=== PATIENT | male | born 1940 | race Caucasian/White ===

== ENCOUNTER 2017-04-09 10:38 | Emergency (ER) | payer OTHER ==
[2017-04-09 10:44] VITALS: RESP 18; TEMP 97.5; O2SAT 97
[2017-04-09 11:11] LABS: COLOR YELLOW; LEUKOCYTE ESTERASE,URINE NEGATIVE (NEGATIVE); NITRITE,URINE NEGATIVE (NEGATIVE)
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
[2017-04-09 12:03] LABS: BACTERIA TRACE /hpf (NONE SEEN); MUCUS TRACE /lpf (NONE-1+); RBC,URINE 50-182 /hpf (0-3)
[2017-04-09 12:28] VITALS: BP 160/99; PULSE 50
== END 2017-04-09 12:27 | disposition home or self-care (01) ==
DX: R31.9 Hematuria, unspecified (principal); E11.9 Type 2 diabetes mellitus without complications; Z79.82 Long term (current) use of aspirin

== ENCOUNTER → 2017-04-17 | Outpatient (CLI) | payer OTHER ==
[~2017-04-17] MED LIST: IOPAMIDOL (ISOVUE-300) 100 ML BTL ONE
[2017-04-17 16:49] LABS: CREATININE 0.7 mg/dL (0.7-1.3); GLOMERULAR FILTRATION RATE > 60
== END ==
LOC: FIMAGING 15:44
PROVIDERS: ATTEND Specialist
DX: R31.0 Gross hematuria (principal); R35.1 Nocturia; K59.00 Constipation, unspecified
CPT/HCPCS: 74178; Q9967

== ENCOUNTER 2017-08-22 08:50 | Emergency (ER) | payer OTHER ==
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
[2017-08-22 12:50] VITALS: BP 166/82; PULSE 56; RESP 12; TEMP 97.2; O2SAT 96
== END 2017-08-22 12:51 | disposition home or self-care (01) ==
DX: S22.32XA Fracture of one rib, left side, initial encounter for closed fracture (principal); S09.90XA Unspecified injury of head, initial encounter; S79.912A Unspecified injury of left hip, initial encounter; V18.2XXA Unspecified pedal cyclist injured in noncollision transport accident in nontraffic accident, initial encounter; E11.9 Type 2 diabetes mellitus without complications; Z79.82 Long term (current) use of aspirin; Z79.4 Long term (current) use of insulin

== ENCOUNTER 2018-05-12 09:43 | Inpatient (IN) | payer OTHER ==
--- NOTE | 2018-05-12 09:59 | CPEKG ---
Heart Rate: 57 RR Interval: 1053 P-R Interval: 192 QRSD Interval: 104 QT Interval: 436 QTC Interval: 425 P Bath: 74 QRS Bath: -64 T Wave Bath: 78 EKG Severity - ABNORMAL ECG - EKG Impression: SINUS RHYTHM EKG Impression: LEFT ANTERIOR FASCICULAR BLOCK Electronically Signed By: Marylu Davis 15-May-2018 15:33:04
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
[2018-05-12 10:14] LABS: PLATELET COUNT 253 10^3/uL (150-400)
[2018-05-12 10:30] LABS: PROTIME(PATIENT) 13.4 SEC (12.0-15.0)
--- NOTE | 2018-05-12 10:47 | CPEKG ---
Heart Rate: 56 RR Interval: 1071 P-R Interval: 188 QRSD Interval: 102 QT Interval: 444 QTC Interval: 429 P Center Line: 63 QRS Center Line: -60 T Wave Center Line: 76 EKG Severity - ABNORMAL ECG - EKG Impression: SINUS RHYTHM EKG Impression: LEFT ANTERIOR FASCICULAR BLOCK Electronically Signed By: Fidel Retana 15-May-2018 07:00:15
--- NOTE | 2018-05-12 15:35 | PDGENHP ---
History and Physical History and Physical: CC: Chest pain HISTORY: The patient comes in for assessment due to chest pain while riding his bike today. He is an avid biker in usually goes for very long bike rides as much as 40-60 miles. Today he was 3 miles into a bike ride when he started to experience a tightness in his chest that was fairly uncomfortable. This was associated with some mild dyspnea and feeling as weakness in his arms. He rode back home and brought himself to the ER. His symptoms are resolved as he arrives at the ER. Notably the patient states that he has been having similar episodes during bike rides intermittently over the past 2 or more weeks. He does have a history of a stent to his LAD some years back probably about 10 years ago. He had this done with Dr. Medhat Mcgovern, but he has not seen a solid plasterer for 5 years. Because of these recent episodes, the patient did see Dr. Cruz in pulmonology clinic yesterday. Dr. Cruz considered the possibility that there was some time but of exercise induced asthma or other pulmonary issue, and prescribe some bronchodilator inhaler which the patient has not yet tried. Dr. Cruz did recommend however that the patient be seen by Cardiology to consider stress testing or other cardiac evaluation ROS: A comprehensive 10 system review revealed no other significant findings PAST MEDICAL HISTORY: Coronary artery disease with stent to LAD Hypertension TIA Hemorrhagic stroke Diabetes mellitus on insulin FAMILY MEDICAL HISTORY: No concerning or relevant significant issues SOCIAL HISTORY: No history of tobacco or alcohol use or street drug use Ride his bike frequently the 40-60 miles though his rides have become shorter in the last couple of weeks due to recurrent episodes of chest discomfort and dyspnea with riding MEDICATIONS: The patients list has been reconciled by our clinical pharmacist in the EMR. I have reviewed the list and ordered appropriate medicines. PHYSICAL EXAMINATION: Vital Signs: Initially very mild systolic hypertension which has resolved spontaneously, otherwise normal Refrigeration Tech: Sinus Examination: General: alert, oriented, good mentation, relaxed Skin: warm, dry, good color, no rash HEENT: normal Neck: no mass or jvd Resps: relaxed Lungs: clear breath sounds Heart: regular, no murmur Abdomen: soft, nondistended, nontender, +BS, no mass Upper Extremities: normal Lower Extremities: no edema, warm No Bleeding or bruising Neurologic: normal speech/language, normal sounding device operator, no focal weakness IV site: looks normal LABORATORY DATA: 1st troponin normal Otherwise unremarkable CBC and metabolic panel other than a glucose 169 RADIOLOGY STUDIES: Chest x-ray done in the ER unremarkable on my interpretation of the images 12 LEAD EKG: My interpretation of the ER EKG tracing is sinus rhythm with mild bradycardia no other abnormalities ASSESSMENT: # exertional chest pain and dyspnea in the gentleman with LAD stent placed 10 years ago # stable sinus rhythm and vital signs at this time with no evidence of heart failure # no ischemic or injury changes on 1st troponin and EKG PLANS: * Observe the patient on cardiac monitoring overnight * Repeat troponins and EKG * Will review with Cardiology, could consider stress test but given his symptoms and known coronary disease with stent 10 years ago might be reasonable to proceed with angiography * Certainly if he has a positive troponins or develops any heart failure or arrhythmia or other instability would recommend angiography I have reviewed the patient's case in detail with Dr. Rj Del Toro I have reviewed the patient's past medical records as part of this assessment, including previous hospital admission records
[2018-05-12] MEDS ORDERED: ALBUTEROL 60 PUFFS/8 GM MDI IH PRN (20:29)
[2018-05-12] MEDS ORDERED: Insulin Pump, Patient Own MISC SCH (20:30)
[2018-05-12] MEDS ORDERED: ACETAMINOPHEN 325 MG TAB PO PRN (20:35)
[2018-05-12] MEDS ORDERED: ONDANSETRON DISINTEGRATING 4 MG TAB PO PRN (20:35)
[2018-05-12] MEDS ORDERED: ZOLPIDEM TARTRATE 5 MG TAB PO PRN (20:35)
[2018-05-12] MEDS ORDERED: ONDANSETRON 4 MG/2 ML VIAL IVP PRN (20:35)
[2018-05-13] MEDS: CHOLECALCIFEROL VIT D3 1,000 UNITS TAB PO SCH (08:24)
[2018-05-13] MEDS: LISINOPRIL 40 MG TAB PO SCH (08:24)
--- NOTE | 2018-05-13 08:30 | HOSPPROG ---
Hospitalist Progress Note Assessment/Plan: DIAGNOSES: -NSTEMI/unstable angina -known coronary disease with prior LAD stent -type 1 diabetes on insulin pump * Some hyperglycemia this morning due to the patient's having turned his basal rate down PLANS: -I reviewed with Dr. Mario Alberto Cox -At this point the patient has essentially failed stress test with his repeated angina on bike and now has some indeterminate troponins. It does not seem like further diagnostic stress testing is going to be beneficial as it will very likely be abnormal but if were normal would be quite concerned about a false normal. He has been NPO overnight. Will plan on angiography later this morning. I reviewed this in detail with the patient -will recheck his sugars later this morning with the higher basal rate, no boluses as he is not eating at this time SUBJECTIVE: Patient has done well overnight without any recurrent angina palpitations or dyspnea He did turn his basal rate on his insulin pump down to 50% of usual during the night and his sugar has crept up to just over 200. He is just recently turned a basal rate back up and will follow this closely OBJECTIVE Vitals reviewed: Sinus bradycardia at rest, otherwise normal vitals no fever Biology Internship, my review: Exam: alert oriented skin warm dry color ok resps not labored lungs clear BSs heart regular abd soft nondistended nontender, bowel sounds present limbs warm, no edema iv site ok Laboratory data: Troponins elevated to 0.09 in indeterminate range on 2nd and 3rd measures Objective: Vital Signs Temp Pulse Resp BP Pulse Ox 36.4 C 43 L 18 136/66 H 100 05/13/18 07:51 05/13/18 07:51 05/13/18 07:51 05/13/18 07:51 05/13/18 07:51 05/12/18 05/13/18 05/14/18 06:59 06:59 06:59 Intake Total 980 Balance 980 PT 13.4 SEC (12.0-15.0) 05/12/18 10:07 INR 1.00 (0.83-1.16) 05/12/18 10:07 ICD10 Worksheet Patient Problems: Problems Problem Status Onset Chest pain Acute Stable angina Acute Benign essential hypertension Active CAD - Coronary arteriosclerosis Active Diabetes mellitus type 1 Active History of - cerebrovascular accident Active History of - transient ischemic attack Active Urinary tract infectious disease Active
[2018-05-13] MEDS ORDERED: ASPIRIN 81 MG CHEWABLE TAB PO SCH ×2 (09:00→22:30)
[2018-05-13] MEDS ORDERED: D50W 25 GM/50 ML SYR IVP PRN (10:43)
[2018-05-13] MEDS ORDERED: INSULIN PUMP, PATIENT OWN 1 EA MISC SCH (10:45)
[2018-05-13] MEDS ORDERED: NS 1,000 ML IV ONE (11:03)
[2018-05-13] MEDS ORDERED: ASPIRIN EC 325 MG TAB PO ONE (11:03)
[2018-05-13] MEDS ORDERED: diphenhydrAMINE 25 MG CAP PO ONE (11:03)
[2018-05-13] MEDS ORDERED: FAMOTIDINE 20 MG TAB PO ONE (11:03)
[2018-05-13] MEDS ORDERED: DIAZEPAM 5 MG TAB PO ONE (11:03)
[2018-05-13] MEDS ORDERED: fentaNYL 100 MCG/2 ML INJ ONE (11:19)
[2018-05-13] MEDS ORDERED: MIDAZOLAM 2 MG/2 ML VIAL ONE (11:19)
[2018-05-13] MEDS ORDERED: LIDOCAINE 1% 300 MG/30 ML SDV ONE (11:19)
[2018-05-13] MEDS ORDERED: IOPAMIDOL (ISOVUE 370) 100 ML BTL IV ONE (11:20)
--- NOTE | 2018-05-13 11:35 | PDHPUP ---
History & Physical Update H&P update statement: This history and physical update is based on an assessment of the patient which was completed after admission or registration (within 24 hours), but prior to the surgery/procedure. H&P update: H&P reviewed & patient examined, no change in patient's condition since H&P completed
--- NOTE | 2018-05-13 11:35 | PDPROPOC ---
Sedation Plan of Care Sedation Plan of Care: vital signs stable, mental status noted, patient educated of risks, benefits, alternatives, patient can tolerate sedation ASA Classification: ASA 2 Planned drugs: fentanyl, midazolam Mallampati Score: Class 2 Mallampati Reference Image: Patient passed 3-3-2 rule?: Yes
--- NOTE | 2018-05-13 12:49 | CPIP ---
[f rep st] INVASIVE CARDIAC PROCEDURE DATE OF PROCEDURE: 05/13/2018 PROCEDURE: 1. Coronary angiography. 2. Left ventriculography. INDICATION: Acute coronary syndrome with elevated troponin. ACCESS: Patient was prepped and draped in sterile fashion. 1% lidocaine was used to anesthetize the right inguinal region. A 6-Lithuanian introducer sheath was placed selectively into the right common fe moral artery via modified Seldinger technique. CORONARY ANGIOGRAPHY: A 6-Lithuanian JL4 was advanced to the left main coronary artery and images obtain ed. The left main coronary artery trifurcated into an LAD, ramus, and circumflex coronary arteries. The left main coronary artery appeared free of any significant disease. The left anterior descendin g coronary artery was previously stented in the proximal mid segments. The previously placed stent i s widely patent with mild in-stent restenosis. Just distal to the previously placed stent, there is a focal 85% stenosis present, indicating edge stenosis as opposed to stent failure. The left anterio r descending coronary artery gave rise to 4 diagonal branches. The largest of the diagonal branches is the 2nd diagonal branch. The 2nd diagonal branch is 100% occluded and the ostial segment is being filled by collaterals from the left anterior descending coronary artery. The ramus coronary artery is a large vessel. The ramus coronary artery has a 60% to 70% stenosis in the proximal segment. The circumflex coronary artery is a moderate-sized vessel. The circumflex coronary artery is 100% occlu ded in the mid vessel. The distal vessel is being fed by collaterals from the left anterior descendi ng coronary artery. A 6-Lithuanian JR4 was advanced to the right coronary artery and images obtained. T he right coronary artery is dominant. The right coronary artery has mild diffuse disease throughout. The greatest stenosis is approximately 30%. LEFT VENTRICULOGRAPHY: A 6-Lithuanian pigtail catheter was advanced in the left ventricle and images obt ained. Left ventricle is normal in size and has normal systolic function. Estimated ejection fracti on is 60%. There were no segmental wall motion abnormalities appreciated. COMPLICATIONS: None. CONCLUSIONS: 1. 2-vessel coronary artery disease involving the left anterior descending coronary artery and circu mflex coronary artery. 2. Chronic total occlusion of the second diagonal artery and the circumflex coronary artery. 3. Normal left ventricular size and systolic function. 4. Plan is for surgical evaluation in this diabetic patient. /[id number]/MODL
--- NOTE | 2018-05-13 14:08 | ASMTCASEMG ---
Living Arrangements What is your living Answers: With Spouse arrangement? Who do you live with? Type Of Residence What kind of residence do Answers: House you live in? Discharge Plan Comments Coordination Status Comments Notes: Pts case discussed in tx rounds. Pt is a 77 y/o man admitted for stable angina and chest pain. 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 Pt will most likely d/c without any needs. No therapies ordered at this time. CM available for changes. Plan: Independent Date Signed: 05/13/2018 02:07 PM Electronically Signed By:LEAH Pratt
[2018-05-13] MEDS ORDERED: NITROGLYCERIN 0.4 MG BTL SL PRN (15:02)
[2018-05-13] MEDS ORDERED: ATROPINE SULFATE 1 MG/10 ML SYR IVP PRN (15:02)
--- NOTE | 2018-05-13 15:21 | GCON ---
[f rep st] CONSULTATION DATE OF CONSULTATION: 05/13/2018 CHIEF COMPLAINT: We have been asked by Dr. Hanks to evaluate the patient with an acute coronary syn drome. HISTORY OF PRESENT ILLNESS: The patient is a 77-year-old gentleman with known coronary artery diseas e, who presents with a chief complaint of chest pain. The patient was in his usual state of health u ntil approximately 2 weeks prior to admission, when he began to experience intermittent episodes of c hest pain. Chest pain is described as a tightness extending across his chest and into his arms bilat erally. The chest discomfort is not associated with nausea, vomiting, or diaphoresis. The chest disc omfort is precipitated with exertion and relieved with rest. The chest discomfort is somewhat simila r to his previous anginal-type symptoms. However, patient states he never had radiation into his arm s previously. On the day of admission, patient was riding his bicycle when he began to experience th e chest discomfort. Upon returning home, he was brought to the emergency department for further eval uation. In the emergency department, he became pain-free. His EKG demonstrated no acute ST or T-wav e changes. However, his subsequent troponins were mildly elevated at 0.090, and 0.074. We have been asked to help in the further management of this patient. The patient has a previous history of dorota nary artery disease and is status post stenting of his left anterior descending coronary artery in th e distant past, followed by brachytherapy of his left anterior descending coronary artery secondary t o in-stent restenosis. His last cardiovascular evaluation was an angiogram in 2005, demonstrating a patent LAD stent. The patient has been managing his diabetes with an insulin pump. He has been on l isinopril and amlodipine for hypertension. He is also taking a daily aspirin. The patient has not b een able to tolerate beta-hannah therapy or statin therapy secondary to adverse drug reaction. PAST MEDICAL HISTORY: 1. Coronary artery disease. 2. Hypertension. 3. Hyperlipidemia. 4. Diabetes mellitus. 5. TIA. MEDICATIONS: Please see medicine reconciliation form. ALLERGIES: No known drug allergies. The patient does report an adverse drug reaction to beta blocke rs and statins. SOCIAL HISTORY: Patient is . He lives with his . He does not smoke. He remains active riding his bicycle approximately 50 miles a week. FAMILY HISTORY: Noncontributory. REVIEW OF SYSTEMS: Ten-point review of systems is negative, except as noted in HPI. PHYSICAL EXAMINATION: GENERAL: The patient is resting comfortably in bed. He does not appear to be in acute distress. VITAL SIGNS: Temperature is afebrile. Pulse is 43, blood pressure 136/66, resp iratory rate 18, SaO2 100% on room air. HEENT: Normocephalic, atraumatic. Extraocular muscles inta ct. NECK: No JVD. No bruits. LUNGS: Clear to auscultation bilaterally. CARDIOVASCULAR: Regular rate and rhythm. S1, S2. Grade 2/6 holosystolic murmur is noted at the left sternal border. ABDOM EN: Soft, nontender. Normoactive bowel sounds. No hepatosplenomegaly noted. Could not palpate aor ta. EXTREMITIES: No clubbing, cyanosis, or edema. SKIN: No evidence of rashes. NEURO: Patient i s awake, alert, and oriented. LABORATORY DATA: White blood cell count 5.21, hemoglobin 16.0, hematocrit 45.9, platelet count 253. Sodium 141, potassium 4.6, chloride 108, CO2 26, BUN 20, creatinine 0.7, troponin 0.018, followed by 0.090, followed by 0.074. LDL cholesterol is 95 on diet therapy. INR is 1.0. EKG demonstrates sin us rhythm, left anterior fascicular block, normal intervals. No acute ST or T-wave changes. ASSESSMENT AND PLAN: The patient is a 77-year-old gentleman with: 1. Acute coronary syndrome. The patient has known coronary artery disease. He presents with cresce ndo angina consistent with an acute coronary syndrome. His EKG demonstrates no acute ST or T-wave ch anges. His troponins are mildly elevated. Reviewed options for risk stratification with the patient and his family, including stress testing and cardiac catheterization. The patient and family wish t o pursue cardiac catheterization. We will arrange to have this performed. 2. Hypertension. Patient has a long history of hypertension. We will plan on continuing amlodipine and lisinopril for his high blood pressure. 3. Hyperlipidemia. Patient has a history of hyperlipidemia. He has been unable to tolerate statin therapy. His LDL cholesterol is mildly elevated. Would consider Zetia therapy. 4. Diabetes. Patient has a history of diabetes. His glucose has been well controlled with an insul in pump. Will defer management to the hospitalist service. /[id number]/MODL
--- NOTE | 2018-05-13 16:53 | PDMN ---
Medical Necessity Medical necessity: Change to IP, as of 05/13/18, per MD; los >2 mn for ongoing management of moderately severe L-sided coronary disease w/significant unstable symptoms; admit for Surgical consult & possible bypass surgery, recommended to be done during this hospitalization; hx diabetes, HTN, TIA; per progress note & order 05/13/18
[2018-05-13] MEDS: LABETALOL HCL 200 MG TAB PO SCH (17:16)
[2018-05-13] MEDS ORDERED: D50W 25 GM/50 ML VIAL IVP PRN (23:30)
--- NOTE | 2018-05-14 08:09 | GCON ---
[f rep st] CONSULTATION DATE OF CONSULTATION: 05/14/2018 Patient seen at the request of Dr. Cox with the patient's permission. IMPRESSION: 1. Non-Q-wave myocardial infarction with severe 3-vessel disease and normal LV function, status post multiple previous stenting and coronary interventions. 2. Hypertension. 3. Hyperlipidemia. 4. Diabetes mellitus on insulin pump. 5. History hemorrhagic stroke with right hemiparesis with resolution, remote. MEDICATIONS: Please see medication reconciliation form. ALLERGIES: Denied. SOCIAL HISTORY: He is , accompanied by his 2 daughters, and his . He remains active cycl ing, approximately 50 miles a week. FAMILY HISTORY: Noncontributory. REVIEW OF SYSTEMS: He is entirely asymptomatic at present time, ambulating and ready for discharge. LABORATORY DATA: Preoperative lab was unremarkable with a troponin of 0.018 and 0.09. Creatinine wa s 0.7. REVIEW OF SYSTEMS: All 10 points were reviewed. PHYSICAL EXAMINATION: GENERAL: This is a slender, elderly gentleman, who appears younger than state d age, quite alert, oriented, and very functional. VITALS: Blood pressure is 130/72, pulse 53, resp irations 16, 96% on room air. Temp 36.4. HEENT: Normocephalic, PERRLA, EOMI. NECK: Without bruit , adenopathy or thyromegaly. HEART: Rate regular without murmur. LUNGS: Clear. ABDOMEN: Scaphoi d. Bowel sounds are active. Femoral and pedal pulses are 2+. No peripheral edema. RECTAL AND LILIA CLAUDIA: Exams were deferred. PLAN: To discharge this gentleman with instructions to return if he has any chest discomfort. He wi ll be scheduled for surgery Thursday morning as an outpatient. Risks and complications, including blee ding, stroke, heart attack, and reviewed at length with the patient and his family. Quoted him mortality as 1-2%, given his age and previous stroke history and peripheral vascular disease. Risk of transfusion is 5% of need for transfusion. Complications of transfusion were reviewed. /[id number]/MODL
[2018-05-14] MEDS ORDERED: EZETIMIBE 10 MG TAB PO SCH (09:00)
[2018-05-14] MEDS: CHOLECALCIFEROL VIT D3 1,000 UNITS TAB PO SCH (10:02)
[2018-05-14] MEDS: LISINOPRIL 40 MG TAB PO SCH (10:02)
--- NOTE | 2018-05-14 10:45 | SOAPPROG ---
SO Progress Note Assessment/Plan: 1. ACS - Pt presented with crescendo angina. Angiogram demonstrated a [employer] of his diagonal and LCX coronary arteries. He had high grade disease distal to his previous LAD stent. He was evaluated by CT surgery and is anticipating CABG on Thursday. He denies symptoms of angina with lower levels of activity. Will continue secondary prevention with asa, labetalol, lisinopril, zetia, and NTG. Pt is unable to tolerate statin therapy. 2. Hyperlipidemia - Pt has a history of hyperlipidemia. He was unable to tolerate statin therapy. Pt started on zetia this hospitalization. FLP and LFTs in 3 months. 3. CAD - Pt has known CAD and is s/p PCI of his LAD. PCI was complicated by ISR resulting in brachytherapy. Angiogram is notable for severe 2VD with 2 CTOs. He reports crescendo exertional angina but denies rest/low level symptoms. He is scheduled for CABG on Thursday. ? answered. OK to DC home prior to surgery on medical management. Pt will present to the ER if he has symptoms prior to surgery. 05/14/18 10:40 Subjective: No chest pain ? regarding surgery No orthopnea or PND. Objective: Vital Signs Temp Pulse Resp BP Pulse Ox 36.8 C 56 L 18 146/63 H 96 05/14/18 08:14 05/14/18 08:14 05/14/18 08:14 05/14/18 08:14 05/14/18 08:14 05/13/18 05/14/18 05/15/18 05:59 05:59 05:59 Intake Total 700 Balance 700 PT 13.4 SEC (12.0-15.0) 05/12/18 10:07 INR 1.00 (0.83-1.16) 05/12/18 10:07 Physical Exam - Physical Exam General Appearance: no apparent distress Respiratory: lungs clear Cardiac/Chest: regular rate, rhythm, systolic murmur Abdomen: non-tender, soft Extremities: other (No hematoma or echymosis), No pedal edema Neuro/Psych: alert, oriented x 3 ICD10 Worksheet Patient Problems: Problems Problem Status Onset Chest pain Acute Stable angina Acute Benign essential hypertension Active CAD - Coronary arteriosclerosis Active Diabetes mellitus type 1 Active History of - cerebrovascular accident Active History of - transient ischemic attack Active Urinary tract infectious disease Active
[2018-05-14] MEDS: LABETALOL HCL 200 MG TAB PO SCH (13:20)
--- NOTE | 2018-05-14 13:26 | GDS ---
[f rep st] DISCHARGE SUMMARY DISCHARGE DIAGNOSES: 1. Acute coronary syndrome. 2. Hyperlipidemia. 3. Coronary artery disease. 4. History of transient ischemic attack. 5. History of hemorrhagic stroke. 6. Diabetes. CONSULTATIONS: Cardiology, CT surgery. PROCEDURES: Cardiac catheterization, 05/13/2018: 2-vessel coronary disease involving the left anterior descending coronary artery and circumflex. Chronic total occlusion of the 2nd diagonal artery and circumflex artery. Normal LV size and systolic function. HISTORY OF PRESENT ILLNESS: 77-year-old male with history of diabetes, coronary disease with stent to LAD, presenting with chest pain while riding his bike. He usually goes for a very long ride up to 60 miles. Date of admission he was at a mile 3 when he had a tightness in his chest that was fairly uncomfortable. This was associated with dyspnea and feeling weak in his arms. HOSPITAL COURSE: 1. ACS: cath showed chronic total occlusion of diagonal and left circumflex. High-grade disease distal to his previous LAD stent. Plan for CABG Thursday by Dr. Inman. Continue medical management with aspirin, labetalol, lisinopril, Zetia, and nitroglycerin. Does not tolerate statins. 2. Hyperlipidemia. Zetia. MEDICATIONS: Labetalol 100 mg twice daily, nitroglycerin as needed, Zetia. PHYSICAL EXAMINATION: VITAL SIGNS: Today, temperature 36.8, blood pressure 143 /60, heart rate in the 40s, respirations 18, 99% on room air. GENERAL: Well- appearing, smiling, walking in his room. HEENT: PERRLA. CARDIOVASCULAR: Bradycardic, regular. LUNGS: Clear. ABDOMEN: Soft, nontender. : No Baker. MUSCULOSKELETAL: No lower extremity edema. NEURO: 2 through 12 intact. PSYCH: Alert and oriented x3. FOLLOWUP: CABG planned for Thursday. Time spent on discharge greater than 30 minutes coordinating medications and explaining followup plan with family. /[id number]/MODL MTDD
[2018-05-14] MEDS: LABETALOL HCL 100 MG TAB PO ONE ×2 (13:43→14:10)
[2018-05-14 13:46] VITALS: BP 111/49
== END 2018-05-14 14:58 | disposition home or self-care (01) | DRG 282 ==
LOC: F2W 13:25 → OBSVTOIN 05-13 15:40
PROVIDERS: ADMIT Internal Medicine; ATTEND Internal Medicine
PROC: B2151ZZ Fluoroscopy of Left Heart using Low Osmolar Contrast (ICD-10-PCS; principal; 2018-05-13)
PROC: B2111ZZ Fluoroscopy of Multiple Coronary Arteries using Low Osmolar Contrast (ICD-10-PCS; principal; 2018-05-13)
DX: I24.9 Acute ischemic heart disease, unspecified (principal); I21.4 Non-ST elevation (NSTEMI) myocardial infarction; E11.9 Type 2 diabetes mellitus without complications; I25.10 Atherosclerotic heart disease of native coronary artery without angina pectoris; E78.5 Hyperlipidemia, unspecified; I10 Essential (primary) hypertension; Z96.41 Presence of insulin pump (external) (internal); Z95.5 Presence of coronary angioplasty implant and graft; Z86.73 Personal history of transient ischemic attack (TIA), and cerebral infarction without residual deficits
CPT/HCPCS: 84484-PO; C1760; G0378; J1644; J2250; J3010; Q9967

== ENCOUNTER 2018-05-17 07:57 | Inpatient (IN) | payer OTHER ==
[~2018-05-17 07:57] MED LIST changes: +AMINOCAPROIC ACID 5 GM/20 ML VIAL IV ONE; +INSULIN REGULAR HUMAN 100 UNIT in NS 100 ML IV ONE; -IOPAMIDOL (ISOVUE-300) 100 ML BTL ONE; +MANNITOL 25% 12.5 GM/50 ML VIAL IVP ONE; +MINERAL OIL 10 ML VIAL ONE; +NOREPINEPHRINE BITARTRATE 16 MG in NS 250 ML IV ONE; +PAPAVERINE HCL 60 MG/2 ML SDV ONE; +PHENYLEPHRINE HCL 50 MG in NS 250 ML IV ONE; +SODIUM BICARBONATE 20 MEQ, LIDOCAINE 1% 10 ML in NORMOSOL-R 1,000 ML MISC ONE; +VERAPAMIL 5 MG, NITROGLYCERIN 2.5 MG, HEPARIN 500 UNIT, SODIUM BICARBONATE 0.2 MEQ in L... MISC ONE; +VERAPAMIL 5 MG/2 ML VIAL ONE
--- NOTE | 2018-05-17 08:33 | PDHPUP ---
History & Physical Update H&P update statement: This history and physical update is based on an assessment of the patient which was completed after admission or registration (within 24 hours), but prior to the surgery/procedure. H&P update: H&P reviewed & patient examined, no change in patient's condition since H&P completed (Denies recurrent CP or dyspnea. Carotid US neg for hemodynamically sig stenosis.)
[2018-05-17] MEDS ORDERED: LIDOCAINE 1% 2 ML INJ ID PRN (08:36)
[2018-05-17] MEDS ORDERED: LR 1,000 ML IV ONE (08:36)
[2018-05-17] MEDS ORDERED: MUPIROCIN 2% 22 GM OINT NS ONE (08:51)
[2018-05-17] MEDS ORDERED: ceFAZolin 2 GM/DEXTROSE 100 ML IV ONE (08:51)
[2018-05-17] MEDS ORDERED: CITRATE DEXTROSE SOLN 500 ML BAG MISC ONE (08:51)
[2018-05-17] MEDS ORDERED: niCARdipine/NACL 200 ML IV ONE (08:51)
[2018-05-17] MEDS ORDERED: LIDOCAINE 1% 5 ML SDV ID PRN (08:51)
[2018-05-17] MEDS ORDERED: PROTAMINE SULFATE 50 MG/5 ML VIAL IVP ONE (09:28)
[2018-05-17] MEDS ORDERED: ALBUMIN 5% 250 ML BOTTLE IV ONE ×2 (09:28→15:45)
[2018-05-17] MEDS ORDERED: LIDOCAINE 2% 100 MG/5 ML SYR ONE ×2 (09:29→12:04)
[2018-05-17] MEDS ORDERED: MILRINONE/DEXTROSE/100 ML BAG IV ONE (09:29)
[2018-05-17] MEDS ORDERED: CALCIUM CHLORIDE 1 GM/10 ML INJ ONE (09:29)
[2018-05-17] MEDS ORDERED: NA BICARBONATE 50 MEQ/50 ML VIAL ONE (09:29)
[2018-05-17] MEDS ORDERED: DOPamine/DEXTROSE 400 MG/250 ML BAG IV ONE (09:30)
[2018-05-17] MEDS ORDERED: CITRATE DEXTROSE SOLN 500 ML BAG ONE (09:30)
[2018-05-17] MEDS ORDERED: HEPARIN 10,000 UNIT/10 ML MDV (1,000 UNIT/ML) ONE (09:30)
[2018-05-17] MEDS ORDERED: AMIODARONE HCL 150 MG/3 ML VIAL ONE (09:31)
[2018-05-17] MEDS ORDERED: niCARdipine/NACL/200 ML BAG IV ONE (09:31)
[2018-05-17] MEDS ORDERED: NITROGLYCERIN/D5W 50 MG/250 ML BOTTLE IV ONE (09:32)
[2018-05-17] MEDS ORDERED: ADENOSINE 6 MG/2 ML VIAL ONE (09:32)
[2018-05-17] MEDS ORDERED: MAGNESIUM SULFATE 1 GM/2 ML VIAL ONE (09:32)
[2018-05-17] MEDS ORDERED: methylPREDNISolone SOD SUCC 1 GM/8 ML VIAL ONE (09:32)
[2018-05-17] MEDS ORDERED: ceFAZolin 1 GM VIAL ONE (09:32)
[2018-05-17] MEDS ORDERED: MIDAZOLAM 2 MG/2 ML VIAL ONE ×2 (11:53→12:03)
[2018-05-17] MEDS ORDERED: MIDAZOLAM 2 MG/2 ML VIAL IVP ONE (11:57)
--- NOTE | 2018-05-17 11:59 | PDANEPAE ---
ANE History of Present Illness severe 3v CAD s/f CABG ANE Past Medical History - Cardiovascular History Hx Hypertension: Yes Hx Arrhythmias: No Hx Chest Pain: Yes Hx Coronary Artery / Peripheral Vascular Disease: Yes Hx CHF / Valvular Disease: No Hx Palpitations: No Cardiovascular History Comment: V TACH NUC STRESS TEST - Pulmonary History Hx COPD: No Hx Asthma/Reactive Airway Disease: No Hx Recent Upper Respiratory Infection: No Hx Oxygen in Use at Home: No Hx Sleep Apnea: No Sleep Apnea Screening Result - Last Documented: Positive - Neurologic History Hx Cerebrovascular Accident: Yes Hx Seizures: No Hx Dementia: No Neurologic History Comment: TIA HEMMORAGIC STROKE. TIA - Endocrine History Hx Diabetes: Yes Endocrine History Comment: HAS INSULIN INFUSION PUMP. Pump off for surgery - Renal History Hx Renal Disorders: No - Liver History Hx Hepatic Disorders: No - Neurological & Psychiatric Hx Hx Neurological and Psychiatric Disorders: No - Cancer History Hx Cancer: Yes Cancer History Comment: SKIN SQUAMOUS - Congenital Disorder History Hx Congenital Disorders: No - GI History Hx Gastrointestinal Disorders: No - Other Health History Other Health History: CATARACT SURG - Chronic Pain History Chronic Pain: No - Surgical History Prior Surgeries: RT ILLIAC CREST SURG. STENT LAD ANE Review of Systems Review of Systems: - Exercise capacity METS (RN): 6 METS ANE Patient History - Allergies Allergies/Adverse Reactions: No Known Allergies Allergy (Verified 05/17/18 09:13) - Home Medications Home medications: home medication list seen and reviewed Home Medications: Insulin Pump, Patient Own 1 ea [facility] [place]31[place]10 [Last Taken 05/17/18] Lisinopril [Zestril 40 mg (*)] 40 mg PO DAILY 10/10/11 [Last Taken 05/12/18] Aspirin [Aspirin 81mg (*)] 81 mg PO DAILY@21 04/09/17 [Last Taken 05/16/18 22:00 ] amLODIPine BESYLATE [Norvasc 2.5 mg (*)] 2.5 mg PO DAILY 08/22/17 [Last Taken 06:30] Albuterol [Proventil Inhaler HFA (*)] 1 - 2 puffs IH Q4H PRN 05/12/18 [Last Taken Unknown] Cholecalciferol Vit D3 [Vitamin D3 (*)] 1,000 units PO DAILY 05/12/18 [Last Taken 05/16/18 06:30] Herbals/Supplements -Info Only 1 ea PO DAILY 05/12/18 [Last Taken 05/16/18 22:00 ] - NPO status NPO Status: no food or drink >8 hours NPO Since - Liquids (Date): 05/16/18 NPO Since - Liquids (Time): 22:30 NPO Since - Solids (Date): 05/16/18 NPO Since - Solids (Time): 22:30 - Anes Hx Anes Hx: no prior problems - Smoking Hx Smoking Status: Never smoked - Alcohol Use Alcohol Use: Rarely - Family Anes Hx Family Anes Hx: none Family Hx Anesthesia Complications: NONE ANE Labs/Vital Signs - Labs - CBC WBC: all reviewed and okay - Labs - BMP Glucose: 136 on CBG per patient - Vital Signs Blood Pressure: 152/85 Heart Rate: 61 Respiratory Rate: 22 O2 Sat (%): 96 Height: 185.42 cm Weight: 81.825 kg ANE Physical Exam - Airway Neck exam: decreased ROM Mallampati Score: Class 2 Mouth exam: normal dental/mouth exam - Pulmonary Pulmonary: no respiratory distress - Cardiovascular Cardiovascular: regular rate and rhythym - ASA Status ASA Status: III ANE Anesthesia Plan Anesthesia Plan: general endotracheal anesthesia Lines/Monitors: arterial line, central line
[2018-05-17] MEDS ORDERED: REMIFENTANIL HCL 1 MG VIAL ONE (12:03)
[2018-05-17] MEDS ORDERED: fentaNYL 250 MCG/5 ML INJ ONE (12:03)
[2018-05-17] MEDS ORDERED: PROPOFOL/EMULSION 500 MG/50 ML BOTTLE IV ONE (12:04)
[2018-05-17] MEDS ORDERED: DEXAMETHASONE 4 MG/ML VIAL ONE (12:04)
[2018-05-17] MEDS ORDERED: PHENYLEPHRINE HCL 100 MCG/ML SYR ONE (12:04)
[2018-05-17] MEDS ORDERED: ONDANSETRON 4 MG/2 ML VIAL ONE (12:04)
[2018-05-17] MEDS ORDERED: ROCURONIUM 100 MG/10 ML VIAL ONE (12:04)
[2018-05-17] MEDS ORDERED: LIDOCAINE HCL 160 MG/4 ML LTA KIT TP ONE (12:08)
[2018-05-17] MEDS ORDERED: DEXMEDETOMIDINE HCL 400 MCG in NS 100 ML IV SCH (14:00)
[2018-05-17] MEDS ORDERED: SUGAMMADEX SODIUM 200 MG/2 ML VIAL IVP ONE (15:25)
[2018-05-17] MEDS ORDERED: LACTULOSE 20 GM/30 ML UDCUP PO PRN (15:40)
[2018-05-17] MEDS ORDERED: PANTOPRAZOLE SODIUM 40 MG VIAL IVP ONE (15:40)
[2018-05-17] MEDS ORDERED: POLYETHYLENE GLYCOL 3350 17 GM PKT PO PRN (15:40)
[2018-05-17] MEDS ORDERED: CEPACOL LOZENGE PO PRN (15:40)
[2018-05-17] MEDS ORDERED: ACETAMINOPHEN 650 MG SUPP PR PRN (15:40)
[2018-05-17] MEDS ORDERED: MAGNESIUM HYDROXIDE 30 ML UDCUP PO PRN (15:40)
[2018-05-17] MEDS ORDERED: BISACODYL 10 MG SUPP PR PRN (15:40)
[2018-05-17] MEDS ORDERED: MAGNESIUM SULF 2 GM/WATER 50 ML IV ONE (15:40)
[2018-05-17] MEDS ORDERED: POTASSIUM Cl (KCl) 50 ML IV PRN (15:40)
[2018-05-17] MEDS ORDERED: METOCLOPRAMIDE 10 MG/2 ML VIAL IVP PRN (15:40)
[2018-05-17] MEDS ORDERED: ONDANSETRON DISINTEGRATING 4 MG TAB PO PRN (15:40)
[2018-05-17] MEDS ORDERED: MEPERIDINE 25 MG/0.5 ML AMP IVP PRN (15:40)
[2018-05-17] MEDS ORDERED: ALBUMIN 5% 250 ML IV PRN (15:40)
[2018-05-17] MEDS ORDERED: ONDANSETRON 4 MG/2 ML VIAL IVP PRN (15:40)
[2018-05-17] MEDS ORDERED: ACETAMINOPHEN 325 MG TAB PO PRN (15:40)
[2018-05-17] MEDS ORDERED: SODIUM CL NASAL 45 ML BTL EACHNARE PRN (15:40)
[2018-05-17] MEDS ORDERED: D50W 25 GM/50 ML SYR IVP PRN (15:40)
[2018-05-17] MEDS ORDERED: MAGNESIUM SULF 2 GM/WATER 50 ML BAG IV ONE (15:45)
[2018-05-17] MEDS ORDERED: NS 1,000 ML IV SCH (15:45)
[2018-05-17] MEDS ORDERED: INSULIN REGULAR HUMAN 100 UNIT in NS 100 ML IV SCH (16:00)
--- NOTE | 2018-05-17 16:38 | CPEKG ---
Heart Rate: 55 RR Interval: 1091 P-R Interval: 212 QRSD Interval: 114 QT Interval: 496 QTC Interval: 475 P [place]: 75 QRS [place]: -70 T Wave [place]: 72 EKG Severity - ABNORMAL ECG - EKG Impression: SINUS RHYTHM EKG Impression: VENTRICULAR PREMATURE COMPLEX EKG Impression: LEFT ANTERIOR FASCICULAR BLOCK Electronically Signed By: Mario Alberto Negron 19-May-2018 07:29:46
--- NOTE | 2018-05-17 16:39 | GOP ---
[f rep st] OPERATIVE REPORT DATE OF OPERATION: 05/17/2018 SURGEON: Michael Inman DO TUBE BENDER: Melanie Stephens, PAC. ANESTHESIOLOGIST: Michael Garcia MD. PREOPERATIVE DIAGNOSIS: Arteriosclerotic heart disease and unstable angina pectoris. POSTOPERATIVE DIAGNOSIS: Arteriosclerotic heart disease and unstable angina pectoris. PROCEDURE PERFORMED: 1. Coronary artery bypass grafting x4 with the left internal mammary artery to the distal left anter ior descending, saphenous vein graft to the 2nd diagonal, saphenous vein graft to the lateral circumf kevon, sequential 1st diagonal. 2. Ligation of left atrial appendage with a 45 mm AtriClip. FINDINGS: DESCRIPTION OF PROCEDURE: Patient was brought to the operating room, intubated, and monitoring lines were placed. He was prepped and draped in sterile classical manner. Sternotomy was performed. He was then heparinized, cannulated. Bypass was begun. A cardioplegic arrest was obtained with antegra de cardioplegia, topical hypothermia, and systemic cooling. Initially, the left atrial appendage was occluded with a 45 mm AtriClip across the base without diffi culty. We then proceeded with grafting the lateral circumflex which was a 2.2 mm vessel as a sequent ial graft with a proximal anastomosis brought off that, and the distal anastomosis brought off the hi gh ramus or 1st diagonal branch as an end-to-side. That was a 2.5 mm vessel. We then brought the gr aft off the ascending aorta with a continuous running 5-0 Prolene. We then proceeded with grafting t he 2nd diagonal, which was a chronically occluded vessel. It was a 1.8 mm vessel. It was brought of f the ascending aorta in a standard fashion and had good antegrade flow. While rewarming was complet ed the mammary was grafted to the distal 3rd of the LAD which was a 3 mm vessel. The mammary was a 2 .8 mm vessel. This was tacked to the epicardium. The cross-clamp was then removed with suction on t he ascending aortic vent. Spontaneous cardiac activity was noted to resume. Patient was easily rewa rmed from bypass. Heparin was reversed with protamine. Cannulas removed and oversewn. 4 pacing wir es, 2 pleural, and 1 mediastinal drain were placed. The thymic fat and pericardium were closed. Norma st was closed in a standard fashion. Patient was returned to the ICU in stable condition. /[id number]/MODL
--- NOTE | 2018-05-17 17:23 | PDMN ---
Medical Necessity Medical necessity: [facility] IP only surgery; cpt 28541 CABG x4
[2018-05-17] MEDS: fentaNYL 100 MCG/2 ML INJ IVP PRN (18:00)
[2018-05-17] MEDS: HYDROCODONE/APAP 5/325 TAB PO PRN (19:15)
[2018-05-17] MEDS: ceFAZolin 2 GM/DEXTROSE 100 ML IV SCH (20:21)
[2018-05-17] MEDS ORDERED: KETOROLAC 30 MG/1 ML SDV IVP ONE (20:30)
[2018-05-17] MEDS: ASPIRIN 81 MG CHEWABLE TAB PO SCH (21:14)
[2018-05-17] MEDS: MUPIROCIN 2% 22 GM OINT NS SCH (21:16)
[2018-05-18] MEDS: fentaNYL 100 MCG/2 ML INJ IVP PRN (00:28)
[2018-05-18] MEDS: HYDROCODONE/APAP 5/325 TAB PO PRN ×4 (00:29→21:00)
[2018-05-18] MEDS: ceFAZolin 2 GM/DEXTROSE 100 ML IV SCH ×3 (04:01→21:00)
[2018-05-18 04:19] LABS: PLATELET COUNT 159 10^3/uL (150-400)
[2018-05-18] MEDS: HEPARIN 5,000 UNIT/0.5 ML INJ SC SCH ×3 (05:35→21:02)
--- NOTE | 2018-05-18 06:33 | SOAPPROG ---
SOAP Progress Note Assessment/Plan: POD #1: CABGx4 (BAZAN-LAD, SVG-D2, sequential SVG-Circ/D1), AtriClip JAMES, GSV harvest L Unstable angina/CAD s/p CABG x4 - BB/ASA/Zetia for secondary prevention - AL/FC out, CTs to bulb suction - Transfer to PCU Acute blood loss anemia - No transfusions needed DM 1 - Hospitalist consulted for transition from insulin gtt to insulin pump Subjective: Pain well-controlled. Denies SOB. Objective: Vital Signs Temp Pulse Resp BP Pulse Ox 37.0 C 68 17 122/59 H 98 05/18/18 04:00 05/18/18 06:00 05/18/18 06:00 05/18/18 06:00 05/18/18 06:00 Laboratory Results 05/18/18 04:10 05/18/18 04:10 05/17/18 05/18/18 05/19/18 05:59 05:59 05:59 Intake Total 778 Output Total 1525 Balance -747 Physical Exam - Physical Exam General Appearance: WD/WN, alert, no apparent distress EENT: No scleral icterus (R), No scleral icterus (L) Neck: normal inspection Respiratory: No respiratory distress Cardiac/Chest: regular rate, rhythm Abdomen: non-tender, soft, No distended Skin: normal color, warm/dry Extremities: No pedal edema Neuro/Psych: no motor/sensory deficits, alert, normal mood/affect, oriented x 3 ICD10 Worksheet Patient Problems: Problems Problem Status Onset Acute blood loss anemia Acute S/P CABG x 4 Acute ~05/17/18 Chronic Disease Mgmt/Transitional Care Acute H/O non-ST elevation myocardial infarction (NSTEMI) Acute Benign essential hypertension Chronic CAD - Coronary arteriosclerosis Chronic Diabetes mellitus type 1 Chronic Presence of insulin pump Chronic
--- NOTE | 2018-05-18 08:38 | POSTANESTH ---
Post Anesthetic Evaluation Cardiovascular Status: Normal, Stable, Similar to Pre-Op Cond Respiratory Status: Tx Decrease in SpO2 (on O2 by NC) Level of Consciousness/Mental Status: Can Participate in Eval Pain Control: Adequate, Prn Tx Ordered Nausea/Vomiting Control: Adequate, Prn Tx Ordered Complications Possibly Related to Anesthesia: None Noted
[2018-05-18] MEDS: PANTOPRAZOLE SODIUM 40 MG TAB PO SCH (09:03)
[2018-05-18] MEDS: MUPIROCIN 2% 22 GM OINT NS SCH ×2 (09:03→21:02)
[2018-05-18] MEDS ORDERED: INSULIN REGULAR HUMAN 100 UNIT in NS 100 ML IV SCH (10:30)
[2018-05-18] MEDS ORDERED: INSULIN LISPRO 100 UNIT/ML SC SCH (12:00)
[2018-05-18] MEDS ORDERED: FUROSEMIDE 20 MG/2 ML VIAL IV ONE (14:15)
[2018-05-18] MEDS ORDERED: NS 500 ML IV ONE (14:30)
[2018-05-18] MEDS ORDERED: D50W 25 GM/50 ML SYR IVP PRN (14:58)
[2018-05-18] MEDS ORDERED: INSULIN PUMP, PATIENT OWN 1 EA MISC SCH (15:00)
[2018-05-18] MEDS ORDERED: NON-FORMULARY NEW DRUG (Insulin Pump, Patient Own 1 EA) MISC SCH (16:00)
--- NOTE | 2018-05-18 16:51 | ASMTCMCOM ---
CM Note CM Note Notes: 77yr old male admitted for CABG x 4. He has a hx of CAD w/stent to LAD, HTN, TIA, Hemorrhagic stroke, DM-1 -insulin pump. Therapies recommending Home with and Cardiac Rehab. No other needs. Date Signed: 05/18/2018 04:51 PM Electronically Signed By:Debbie Wadswotrh LCSW
[2018-05-18] MEDS: ASPIRIN 81 MG CHEWABLE TAB PO SCH (21:00)
[2018-05-18] MEDS: SENNOSIDES/DOCUSATE SODIUM TAB PO SCH (21:02)
--- NOTE | 2018-05-18 21:03 | GCON ---
[f rep st] CONSULTATION DATE OF CONSULTATION: 05/18/2018 REFERRING PHYSICIAN: MD Henny REASON FOR CONSULTATION: Management of diabetes. HPI: A pleasant 77-year-old male with a history of coronary artery disease, recently admitted to [facility], 05/13/2018, for ACS, in which cardiac cath showed 2- vessel coronary disease involving the LAD and left circumflex. There was chronic total occlusion of the 2nd diagonal artery and circumflex. He returned yesterday for elective 4-vessel CABG by Dr. Inman. He denies fevers, chills, or sweats. No nausea, vomiting, diarrhea. No chest pain or shortness of breath. REVIEW OF SYSTEMS: A completed a 10-point review of systems negative except noted in HPI. PAST MEDICAL HISTORY: Coronary artery disease, hyperlipidemia, TIA, history of hemorrhagic stroke, Type 1 diabetes with insulin pump; hypertension; squamous/ basal cell skin cancer. FAMILY HISTORY: Father of a heart attack. Mother had diabetes and renal failure. PAST MEDICAL HISTORY: PAST SURGICAL HISTORY: Cardiac catheterizations, orthopedic surgery, tonsillectomy, adenectomy, cataract surgery. SOCIAL HISTORY: He is . He lives in [place]. He worked for [employer] for 30 years. He is an avid cyclist, riding up to 40 miles on a ride. ALLERGIES: None. HOME MEDICATIONS: Norvasc 2.5 mg daily, nitroglycerin 0.4 mg p.r.n., Zestril 40 mg daily, labetalol 100 mg b.i.d., insulin pump, herbal supplement, Zetia 10 mg daily, vitamin D3, aspirin 81 mg daily, albuterol as needed. PHYSICAL EXAM: VITAL SIGNS: Temperature 37.1. Blood pressure is 144/79, heart rate 60, respirations 20, 94% on room air. GENERAL: Lying in bed smiling , in no acute distress. HEENT: PERRLA. Moist mucous membranes. CV: Regular rate and rhythm. LUNGS: Clear. ABDOMEN: Soft, nontender, nondistended. Positive bowel sounds. : No Baker. MUSCULOSKELETAL: 5/5 upper and lower extremity strength. NEURO: 2-12 intact. PSYCH: Alert and oriented x3. LABS: WBCs 14, hemoglobin 13, hematocrit 38, platelets 159. Sodium 138, potassium 5.4, chloride 103, repeat potassium 4.6, creatinine is 1, glucose 130s to 182. A1c 7.6. ASSESSMENT AND PLAN: 1. Coronary artery disease with recent unstable angina: Status post coronary artery bypass grafting x4, 05/17/2018, on management per Dr. Inman. Continue medical management, beta-hannah, aspirin, Zetia. Cannot tolerate statin. 2. Acute blood-loss anemia: H and H stable. No transfusion needed. 3. Type 1 diabetes: Sugars have been controlled on pump for 24 hours postop. The patient may resume his own insulin pump. 4. Hypertension: Norvasc and labetalol. 5. History of transient ischemic attack: Beta-hannah, Zetia. Thank you for this consultation. We will follow along. Please call if any questions. /[id number]/MODL MTDD
[2018-05-19] MEDS: ceFAZolin 2 GM/DEXTROSE 100 ML IV SCH (04:29)
[2018-05-19] MEDS: HYDROCODONE/APAP 5/325 TAB PO PRN ×4 (05:30→22:36)
[2018-05-19] MEDS: HEPARIN 5,000 UNIT/0.5 ML INJ SC SCH ×3 (05:31→22:36)
--- NOTE | 2018-05-19 06:44 | SOAPPROG ---
SOAP Progress Note Assessment/Plan: POD #2: CABGx4 (BAZAN-LAD, SVG-D2, sequential SVG-Circ/D1), AtriClip JAMES, GSV harvest L Unstable angina/CAD s/p CABG x4 - BB/ASA/Zetia for secondary prevention when appropraite - CTs to remain, PW to be removed Acute blood loss anemia - No transfusions needed DM 1 - Hospitalist for further mgmt DVT prophylaxis - SCDs/heparin SQ Subjective: Denies pain/SOB. Objective: Vital Signs Temp Pulse Resp BP Pulse Ox 36.9 C 66 16 119/68 98 05/19/18 04:00 05/19/18 04:00 05/19/18 04:00 05/19/18 04:00 05/19/18 04:00 Laboratory Results 05/19/18 05:40 05/19/18 05:40 05/18/18 05/19/18 05/20/18 05:59 05:59 05:59 Intake Total 778 2607 Output Total 1525 1540 Balance -747 1067 Physical Exam - Physical Exam General Appearance: WD/WN, alert, no apparent distress EENT: No scleral icterus (R), No scleral icterus (L) Neck: normal inspection Respiratory: No respiratory distress Cardiac/Chest: regular rate, rhythm Abdomen: non-tender, soft, No distended Skin: normal color, warm/dry Extremities: No pedal edema Neuro/Psych: no motor/sensory deficits, alert, normal mood/affect, oriented x 3 ICD10 Worksheet Patient Problems: Problems Problem Status Onset Acute blood loss anemia Acute S/P CABG x 4 Acute ~05/17/18 Chronic Disease Mgmt/Transitional Care Acute H/O non-ST elevation myocardial infarction (NSTEMI) Acute Benign essential hypertension Chronic CAD - Coronary arteriosclerosis Chronic Diabetes mellitus type 1 Chronic Presence of insulin pump Chronic
[2018-05-19] MEDS ORDERED: ALBUTEROL 60 PUFFS/8 GM MDI IH PRN (08:24)
[2018-05-19] MEDS: SENNOSIDES/DOCUSATE SODIUM TAB PO SCH ×2 (08:42→22:05)
[2018-05-19] MEDS: PANTOPRAZOLE SODIUM 40 MG TAB PO SCH (08:42)
[2018-05-19] MEDS ORDERED: METOPROLOL TARTRATE 25 MG TAB PO SCH (09:00)
[2018-05-19] MEDS: MUPIROCIN 2% 22 GM OINT NS SCH (11:22)
--- NOTE | 2018-05-19 12:23 | HOSPPROG ---
Hospitalist Progress Note Assessment/Plan: #POD 2 CABG x 4 #Unstable Angina #ABLA #DM - I #HTN #Hx of TIA #Pedal Edema: diuretics if needed per Primary Plan: cont insulin pump medical mgmt: cont BB, ASA, Zetia. Does not tolerate statin cont Norvasc and Labetalol for HTN Subjective: glucose overall well controlled. no complaints. no cp or sob. Objective: Vital Signs Temp Pulse Resp BP Pulse Ox 36.8 C 66 24 H 128/65 H 93 05/19/18 12:00 05/19/18 12:00 05/19/18 12:00 05/19/18 12:00 05/19/18 12:00 Laboratory Results 05/19/18 05:40 05/19/18 05:40 05/18/18 05/19/18 05/20/18 05:59 05:59 05:59 Intake Total 778 2607 Output Total 1525 1540 Balance -747 1067 - Physical Exam Constitutional: no apparent distress Eyes: PERRL Ears, Nose, Mouth, Throat: moist mucous membranes, hearing normal Cardiovascular: regular rate and rhythym, edema (trace LE) Respiratory: no respiratory distress, no rales or rhonchi, clear to auscultation Gastrointestinal: normoactive bowel sounds, soft, non-tender abdomen Skin: warm Musculoskeletal: full muscle strength Neurologic: AAOx3 Psychiatric: interacting appropriately, not anxious, not encephalopathic Lymph, Heme, Immunologic: No petechiae ICD10 Worksheet Patient Problems: Problems Problem Status Onset Acute blood loss anemia Acute S/P CABG x 4 Acute ~05/17/18 Chronic Disease Mgmt/Transitional Care Acute H/O non-ST elevation myocardial infarction (NSTEMI) Acute Benign essential hypertension Chronic CAD - Coronary arteriosclerosis Chronic Diabetes mellitus type 1 Chronic Presence of insulin pump Chronic
[2018-05-19] MEDS ORDERED: AMIODARONE HCL 100 ML IV ONE (19:45)
[2018-05-19] MEDS ORDERED: AMIODARONE HCL 200 ML IV ONE (19:45)
[2018-05-19] MEDS: ASPIRIN 81 MG CHEWABLE TAB PO SCH (22:05)
[2018-05-19] MEDS: METOPROLOL TARTRATE 25 MG TAB PO SCH (22:06)
[2018-05-20] MEDS ORDERED: AMIODARONE HCL 540 MG in D5W 300 ML IV ONE (02:00)
[2018-05-20] MEDS: HEPARIN 5,000 UNIT/0.5 ML INJ SC SCH ×3 (06:09→20:28)
[2018-05-20] MEDS: HYDROCODONE/APAP 5/325 TAB PO PRN (06:09)
--- NOTE | 2018-05-20 06:54 | SOAPPROG ---
SOAP Progress Note Assessment/Plan: Assessment: POD#3 CABGx4 (BAZAN-LAD, SVG-D2, sequential SVG-DI-OM), prophylactic AtriClip ligation JAMES, EVH LLE. Sx CAD/recent NSTEMI w preserved LV systolic fx - s/p CABG x4. Stable early postop course. TCPW out. Secondary prevention w ASA, BB and Zetia (statin intolerance). ACEI as allowed by BP. Acute expected blood loss anemia - Stable. No transfusions needed. VTE prophylaxis with SCD/Sq hep. Postop PAF - POD#2. No sustained RVR. Converted to SR on amio. Adjunctive BB as tolerated. Antithrombotic prophylaxis with DOAC if recurs. DM 1, on insulin pump - Postop hyperglycemia managed with insulin gtt. Transitioned back to insulin pump. Hospitalist following. HTN - Controlled on combo therapy. Postop control preferentially with BB. Plan: Remove mediastinal drain. Keep pleural drain one more day. Transition amio to orals. Transition Metoprolol tartrate to (home) labetalol. Gentle diuresis. Dispo - Home next 1-2 days. 05/20/18 06:54 Subjective: Feels great. Pain well controlled. Appetite near normal. Awaiting BM. Ready for home. Objective: Vital Signs Temp Pulse Resp BP Pulse Ox 36.4 C 65 16 128/92 H 98 05/20/18 04:00 05/20/18 04:00 05/20/18 04:00 05/20/18 04:00 05/20/18 04:00 Laboratory Results 05/19/18 05:40 05/19/18 05:40 05/19/18 05/20/18 05/21/18 05:59 05:59 05:59 Intake Total 2607 1450 Output Total 1540 1465 Balance 1067 -15 AF w VVR last pm, converting to SR early this am. No hypotension. Almost off O2. Balanced I/Os. +5 kg overall. CTOP nearing removal criteria. Physical Exam - Physical Exam General Appearance: alert, no apparent distress Respiratory: crackles (left base, o/w CTA), other (blakes x 2 to bulb suction, thin serosang drainage) Cardiac/Chest: regular rate, rhythm, other (Sternotomy and LLE venotomy CDI) Abdomen: non-tender, soft Skin: warm/dry Extremities: swelling (trace -1+ dependent) ICD10 Worksheet Patient Problems: Problems Problem Status Onset Acute blood loss anemia Acute S/P CABG x 4 Acute ~05/17/18 Chronic Disease Mgmt/Transitional Care Acute H/O non-ST elevation myocardial infarction (NSTEMI) Acute Benign essential hypertension Chronic CAD - Coronary arteriosclerosis Chronic Diabetes mellitus type 1 Chronic Presence of insulin pump Chronic
[2018-05-20] MEDS: METOPROLOL TARTRATE 25 MG TAB PO SCH (08:28)
[2018-05-20] MEDS: CHOLECALCIFEROL VIT D3 1,000 UNITS TAB PO SCH (08:28)
[2018-05-20] MEDS: SENNOSIDES/DOCUSATE SODIUM TAB PO SCH ×2 (08:28→20:03)
[2018-05-20] MEDS: AMIODARONE HCL 200 MG TAB PO SCH ×2 (08:28→20:05)
[2018-05-20] MEDS: EZETIMIBE 10 MG TAB PO SCH (08:28)
[2018-05-20] MEDS: PANTOPRAZOLE SODIUM 40 MG TAB PO SCH (08:31)
--- NOTE | 2018-05-20 11:18 | HOSPPROG ---
Hospitalist Progress Note Assessment/Plan: #POD 3 CABG x 4 #Pedal Edema -Increased weight from baseline (5 Kg) #Unstable Angina #ABLA, no indication for transfusion #DM - I with mild hyperglycemia -A1C: 7.6 #Afib, appear resolved -Post operative Afib -Now in SR -on Amio and Metoprolol #HTN #Hx of TIA #Pedal Edema: diuretics if needed per Primary Plan: cont insulin pump. We discussed his hyperglycemia and he reports that he wants to control his diet today prior to any changes to his pump. His glucoses are slightly elevated and I think its reasonable to monitor with the change in diet. medical mgmt: cont BB, ASA, Zetia. Does not tolerate statin cont Norvasc and Labetalol for HTN His pedal edema is slightly increased from yesterday. Weigh is overall increased but stable from yesterday. If worsens, consider diuresis and CXR cont IS DVT proph: Heparin Subjective: mild hyperglycemia. A1C noted to be 7.6. went into afib yesteday, now better and in SR. Objective: Vital Signs Temp Pulse Resp BP Pulse Ox 36.4 C 71 18 132/72 H 92 05/20/18 08:00 05/20/18 08:00 05/20/18 08:00 05/20/18 08:00 05/20/18 08:00 Laboratory Results 05/19/18 05:40 05/19/18 05:40 05/19/18 05/20/18 05/21/18 05:59 05:59 05:59 Intake Total 2607 1450 Output Total 1540 1465 Balance 1067 -15 - Physical Exam Constitutional: no apparent distress, not in pain Eyes: PERRL, EOMI Ears, Nose, Mouth, Throat: moist mucous membranes, hearing normal Cardiovascular: regular rate and rhythym, edema (trace pedal edema) Respiratory: reduced air movement Gastrointestinal: normoactive bowel sounds, soft, non-tender abdomen Skin: warm Neurologic: AAOx3 Psychiatric: interacting appropriately, not anxious, not encephalopathic Lymph, Heme, Immunologic: No petechiae ICD10 Worksheet Patient Problems: Problems Problem Status Onset Acute blood loss anemia Acute S/P CABG x 4 Acute ~05/17/18 Chronic Disease Mgmt/Transitional Care Acute H/O non-ST elevation myocardial infarction (NSTEMI) Acute Benign essential hypertension Chronic CAD - Coronary arteriosclerosis Chronic Diabetes mellitus type 1 Chronic Presence of insulin pump Chronic
--- NOTE | 2018-05-20 14:01 | ASMTCMCOM ---
CM Note CM Note Notes: 05/20/2018 Case Management Note Discussed pt with Transitional Care RN. Transitional Care to follow pt after d/c. PT recommending outpatient cardiac rehab. Case Management d/c poc: Cardiac rehab with transitional care to follow. Case Management available if needs change. Date Signed: 05/20/2018 02:00 PM Electronically Signed By:Kirstin Partida RN
[2018-05-20] MEDS: LORazepam 0.5 MG TAB PO PRN ×2 (14:53→20:04)
[2018-05-20] MEDS ORDERED: FUROSEMIDE 20 MG/2 ML VIAL IVP ONE (15:22)
[2018-05-20] MEDS: ASPIRIN 81 MG CHEWABLE TAB PO SCH (20:04)
[2018-05-20] MEDS ORDERED: LABETALOL HCL 100 MG TAB PO SCH (21:00)
[2018-05-21] MEDS: HEPARIN 5,000 UNIT/0.5 ML INJ SC SCH (05:44)
--- NOTE | 2018-05-21 06:50 | SOAPPROG ---
SOAP Progress Note Assessment/Plan: POD #4: CABGx4 (BAZAN-LAD, SVG-D2, sequential SVG-Circ/D1), AtriClip JAMES, L EVH Unstable angina/CAD s/p CABG x4 - BB/ASA/Zetia for secondary prevention when appropriate - Remaining CT to be removed today Acute blood loss anemia - No transfusions needed Post-op paroxysmal atrial fibrillation - Conversion to SR with amiodarone/beta-hannah - AC avoided d/t short duration of arrhythmia DM 1 - Hospitalist for further mgmt DVT prophylaxis - SCDs/heparin SQ Disposition - Home today without services Subjective: Feels well. Happy to be discharged. Objective: Vital Signs Temp Pulse Resp BP Pulse Ox 36.8 C 65 14 133/71 H 96 05/21/18 04:00 05/21/18 04:00 05/21/18 04:00 05/21/18 04:00 05/21/18 04:00 Laboratory Results 05/19/18 05:40 05/21/18 05:20 05/20/18 05/21/18 05/22/18 05:59 05:59 05:59 Intake Total 1450 1100 Output Total 1465 2780 Balance -15 -1680 Physical Exam - Physical Exam General Appearance: WD/WN, alert, no apparent distress EENT: No scleral icterus (R), No scleral icterus (L) Neck: normal inspection Respiratory: No normal breath sounds Cardiac/Chest: regular rate, rhythm Abdomen: non-tender, soft, No distended Skin: normal color, warm/dry Extremities: No pedal edema Neuro/Psych: no motor/sensory deficits, alert, normal mood/affect, oriented x 3 ICD10 Worksheet Patient Problems: Problems Problem Status Onset Acute blood loss anemia Acute S/P CABG x 4 Acute ~05/17/18 Chronic Disease Mgmt/Transitional Care Acute H/O non-ST elevation myocardial infarction (NSTEMI) Acute Benign essential hypertension Chronic CAD - Coronary arteriosclerosis Chronic Diabetes mellitus type 1 Chronic Presence of insulin pump Chronic
[2018-05-21] MEDS ORDERED: AMIODARONE HCL 100 ML IV ONE (07:59)
[2018-05-21] MEDS: AMIODARONE HCL 200 MG TAB PO SCH ×2 (08:48→20:12)
[2018-05-21] MEDS: CHOLECALCIFEROL VIT D3 1,000 UNITS TAB PO SCH (08:49)
[2018-05-21] MEDS: EZETIMIBE 10 MG TAB PO SCH (08:49)
[2018-05-21] MEDS: METOPROLOL TARTRATE 25 MG TAB PO SCH ×2 (08:49→20:12)
[2018-05-21] MEDS: PANTOPRAZOLE SODIUM 40 MG TAB PO SCH (08:49)
[2018-05-21] MEDS: APIXABAN 2.5 MG TAB PO SCH ×2 (08:49→20:13)
[2018-05-21] MEDS: SENNOSIDES/DOCUSATE SODIUM TAB PO SCH ×2 (08:50→20:13)
[2018-05-21] MEDS ORDERED: FUROSEMIDE 20 MG/2 ML VIAL IVP ONE (09:07)
[2018-05-21] MEDS: POTASSIUM CL 20 MEQ TAB PO ONE ×2 (10:29→12:05)
--- NOTE | 2018-05-21 12:24 | ASMTCMCOM ---
CM Note CM Note Notes: 05/21/2018 Case Management Note Discussed case with Dr. Inman. There are no anticipated case management d/c needs. Possible d/c on Thursday. Case Management d/c poc: independent with family support and cardiac outpatient rehab. Transitional Care RN to follow at d/c. Case Management to follow. Date Signed: 05/21/2018 12:23 PM Electronically Signed By:Kristin Partida RN
[2018-05-21] MEDS: HYDROCODONE/APAP 5/325 TAB PO PRN ×2 (12:45→19:33)
--- NOTE | 2018-05-21 14:48 | HOSPPROG ---
Hospitalist Progress Note Assessment/Plan: #POD 4 CABG x 4 #Pedal Edema -improving #Unstable Angina #ABLA, no indication for transfusion #DM - I with mild hyperglycemia -A1C: 7.6 #Afib, recurrent -Post operative Afib -on Amio and Metoprolol -Eliquis #HTN #Hx of TIA Plan: cont insulin pump. medical mgmt: cont BB, ASA, Zetia. Does not tolerate statin cont Norvasc and Labetalol for HTN cont IS Eliquis Amio Subjective: went into afib overnight, now in SR. AC started. On amio Objective: Vital Signs Temp Pulse Resp BP Pulse Ox 36.4 C 64 14 115/78 96 05/21/18 07:02 05/21/18 11:09 05/21/18 11:09 05/21/18 11:09 05/21/18 11:09 Laboratory Results 05/19/18 05:40 05/21/18 05:20 05/20/18 05/21/18 05/22/18 05:59 05:59 05:59 Intake Total 1450 1100 Output Total 1465 2780 55 Balance -15 -1680 -55 - Physical Exam Constitutional: no apparent distress Eyes: PERRL, EOMI Ears, Nose, Mouth, Throat: moist mucous membranes, hearing normal Cardiovascular: regular rate and rhythym, No edema Respiratory: no respiratory distress, no rales or rhonchi, clear to auscultation Gastrointestinal: normoactive bowel sounds Skin: warm Neurologic: AAOx3 Psychiatric: interacting appropriately, not anxious, not encephalopathic Lymph, Heme, Immunologic: No petechiae ICD10 Worksheet Patient Problems: Problems Problem Status Onset Acute blood loss anemia Acute S/P CABG x 4 Acute ~05/17/18 Chronic Disease Mgmt/Transitional Care Acute H/O non-ST elevation myocardial infarction (NSTEMI) Acute Benign essential hypertension Chronic CAD - Coronary arteriosclerosis Chronic Diabetes mellitus type 1 Chronic Presence of insulin pump Chronic
[2018-05-21] MEDS: ASPIRIN 81 MG CHEWABLE TAB PO SCH (20:12)
[2018-05-21] MEDS: LORazepam 0.5 MG TAB PO PRN (20:12)
[2018-05-22] MEDS: HYDROCODONE/APAP 5/325 TAB PO PRN ×2 (05:32→10:45)
[2018-05-22] MEDS: LORazepam 0.5 MG TAB PO PRN (05:32)
[2018-05-22] MEDS ORDERED: SENNOSIDES/DOCUSATE SODIUM TAB PO PRN (07:10)
[2018-05-22] MEDS: APIXABAN 2.5 MG TAB PO SCH (09:00)
[2018-05-22] MEDS: METOPROLOL TARTRATE 25 MG TAB PO SCH (09:01)
[2018-05-22] MEDS: CHOLECALCIFEROL VIT D3 1,000 UNITS TAB PO SCH (09:01)
[2018-05-22] MEDS: EZETIMIBE 10 MG TAB PO SCH (09:01)
[2018-05-22] MEDS: PANTOPRAZOLE SODIUM 40 MG TAB PO SCH (09:01)
[2018-05-22] MEDS: AMIODARONE HCL 200 MG TAB PO SCH (09:50)
--- NOTE | 2018-05-22 10:50 | SOAPPROG ---
SOAP Progress Note Assessment/Plan: POD #5: CABGx4 (BAZAN-LAD, SVG-D2, sequential SVG-Circ/D1), AtriClip JAMES, L EVH Unstable angina/CAD s/p CABG x4 - On ASA, Zetia and Metoprolol. - Remaining CT removed today Acute blood loss anemia - No transfusions needed Post-op paroxysmal atrial fibrillation - Conversion to SR with amiodarone/beta-hannah. On Amio 200mg po BID. - On Eliquis x 30 days. Hypertension - Controlled with SBP 120-140's. - Uptitrated BB as tolerated. Postop hypervolemia - Patient net +390mls, up 3kg from preop weight. - On Lasix. DM 1 - Hospitalist for further mgmt DVT prophylaxis - SCDs/heparin SQ Disposition - Home today without services Subjective: "My night was excellent!". Patient reports good pain control. Objective: Vital Signs Temp Pulse Resp BP Pulse Ox 36.5 C 63 16 127/78 H 91 L 05/22/18 07:51 05/22/18 07:51 05/22/18 07:51 05/22/18 07:51 05/22/18 07:51 Laboratory Results 05/22/18 05:15 05/22/18 05:15 05/21/18 05/22/18 05/23/18 05:59 05:59 05:59 Intake Total 1100 1150 Output Total 2780 760 35 Balance -1680 390 -35 Physical Exam - Physical Exam General Appearance: WD/WN, alert, no apparent distress Neck: supple Respiratory: lungs clear, normal breath sounds, decreased breath sounds (bases) , other (No wheezing, rhonchi, rales. ) Cardiac/Chest: regular rate, rhythm, other (No murmurs, rubs, gallops. Sternum stable. Sternotomy c/d/i. ) Abdomen: normal bowel sounds, non-tender, soft Skin: normal color, warm/dry Extremities: other (Warm, 1+ lower extemity pitting edema) Neuro/Psych: alert, normal mood/affect, oriented x 3 ICD10 Worksheet Patient Problems: Problems Problem Status Onset Acute blood loss anemia Acute S/P CABG x 4 Acute ~05/17/18 Chronic Disease Mgmt/Transitional Care Acute H/O non-ST elevation myocardial infarction (NSTEMI) Acute Benign essential hypertension Chronic CAD - Coronary arteriosclerosis Chronic Diabetes mellitus type 1 Chronic Presence of insulin pump Chronic
[2018-05-22] MEDS ORDERED: METOPROLOL TARTRATE 25 MG TAB PO SCH (11:41)
[2018-05-22] MEDS ORDERED: FUROSEMIDE 40 MG TAB PO SCH (11:45)
[2018-05-22] MEDS ORDERED: POTASSIUM CL 20 MEQ TAB PO SCH (11:45)
[2018-05-22 12:16] VITALS: BP 113/64
--- NOTE | 2018-05-22 13:33 | HOSPPROG ---
Hospitalist Progress Note Assessment/Plan: #POD 5 CABG x 4 #Pedal Edema -now on daily diuretics #Hypoxemia, now on daily diuretics #Unstable Angina #ABLA, no indication for transfusion #DM - I with mild hyperglycemia -A1C: 7.6 #Afib, recurrent -Post operative Afib -on Amio and Metoprolol -Eliquis #HTN #Hx of TIA Plan: cont insulin pump. medical mgmt: cont BB, ASA, Zetia. Does not tolerate statin cont Norvasc and Labetalol for HTN cont IS Eliquis Amio Lasix Ok for discharge Subjective: no cp. some sob earlier. he wants discharge. Objective: Vital Signs Temp Pulse Resp BP Pulse Ox 35.8 C L 63 16 113/64 94 05/22/18 12:00 05/22/18 12:00 05/22/18 12:00 05/22/18 12:00 05/22/18 12:00 Laboratory Results 05/22/18 05:15 05/22/18 05:15 05/21/18 05/22/18 05/23/18 05:59 05:59 05:59 Intake Total 1100 1150 500 Output Total 2780 760 35 Balance -1680 390 465 - Physical Exam Constitutional: no apparent distress Eyes: PERRL, EOMI Ears, Nose, Mouth, Throat: moist mucous membranes Cardiovascular: regular rate and rhythym, edema Respiratory: reduced air movement Gastrointestinal: normoactive bowel sounds, soft, non-tender abdomen Skin: warm Neurologic: AAOx3 Psychiatric: interacting appropriately, not anxious, not encephalopathic ICD10 Worksheet Patient Problems: Problems Problem Status Onset Acute blood loss anemia Acute S/P CABG x 4 Acute ~05/17/18 Chronic Disease Mgmt/Transitional Care Acute H/O non-ST elevation myocardial infarction (NSTEMI) Acute Benign essential hypertension Chronic CAD - Coronary arteriosclerosis Chronic Diabetes mellitus type 1 Chronic Presence of insulin pump Chronic
--- NOTE | 2018-05-22 16:49 | PDDCSUM ---
Discharge Summary Discharge Summary: Patient Name: Isiah Payne Patient Admission Date: 05/17/2018 Discharge Date: 05/22/2018 Attending Physician: Michael Inman DO Dictated by: Cynthia Mijares PA-C Condition on Discharge: Stable Discharge Diagnosis: Severe CAD s/p CABG x 4 Acute blood loss anemia Paroxysmal atrial fibrillation Hypertension Hyperlipidemia Type 1 Diabetes mellitus TIA Procedures: 05/17/2018 (Henny) CABGx4 (BAZAN-LAD, SVG-D2, sequential SVG-Circ/D1), AtriClip JAMES, L EVH HPI: This is a 77yo male with Type 1 DM, HTN, hyperlipidemia and known hx of CAD s/p remote stent to LAD who was recently admitted to [facility] for ACS. Cardiac cath showed severe 2-vessel CAD involving the LAD and Cx. Patient returned on for elective CABG with Dr. Inman. Laboratory/Data: Left Heart Catheterization 05/13/2018 CONCLUSIONS: 1. 2-vessel coronary artery disease involving the left anterior descending coronary artery and circumflex coronary artery. 2. Chronic total occlusion of the second diagonal artery and the circumflex coronary artery. 3. Normal left ventricular size and systolic function. 4. Plan is for surgical evaluation in this diabetic patient. 05/22/18 05:15 05/22/18 05:15 Patient ABO/Rh A POSITIVE 05/17/18 09:04 Hospital Course by Problem List: Unstable angina/CAD s/p CABG x4 - On ASA, Zetia and Metoprolol. Acute blood loss anemia - No transfusions needed Post-op paroxysmal atrial fibrillation - Conversion to SR with amiodarone/beta-hannah. On Amio 200mg po BID. - On Eliquis x 30 days. Hypertension - Controlled with SBP 120-140's. - Uptitrated BB as tolerated. Postop hypervolemia - Patient net +390mls, up 3kg from preop weight. - On Lasix. DM 1 - Hospitalist mgmt DVT prophylaxis - SCDs/heparin SQ Discharge Medications: Insulin Pump, Patient Own 1 ea MISC AD Aspirin [Aspirin 81mg (*)] 81 mg PO DAILY Albuterol [Proventil Inhaler HFA (*)] 1 - 2 puffs IH Q4H PRN Cholecalciferol Vit D3 [Vitamin D3 (*)] 1,000 units PO DAILY Ezetimibe [Zetia 10 MG (*)] 10 mg PO DAILY #30 tab Nitroglycerin [Nitrostat 0.4 mg (*)] 0.4 mg SL PRN PRN #30 btl Amiodarone HCl [Pacerone (*)] 200 mg PO BID 14 Days #45 tab Apixaban [Eliquis] 2.5 mg PO BID 30 Days #60 tab 05/22/18 Furosemide [Lasix 40 MG (*)] 40 mg PO DAILY 14 Days #14 tab Hydrocodone/APAP 5/325 [[place] 5/325 (*)] 1 - 2 tab PO Q6H PRN #50 tab Metoprolol Tartrate [Lopressor 25 mg (*)] 37.5 mg PO BID 30 Days tab Potassium Cl [Klor-Con 20 meq (*)] 20 meq PO DAILY 14 Days #14 tab Vital Signs Temp Pulse Resp BP Pulse Ox 36.5 C 63 16 127/78 H 91 L 05/22/18 07:51 05/22/18 07:51 05/22/18 07:51 05/22/18 07:51 05/22/18 07:51 Physical Exam on Discharge: General Appearance: WD/WN, alert, no apparent distress Neck: supple Respiratory: lungs clear, normal breath sounds, decreased breath sounds (bases) , other (No wheezing, rhonchi, rales. ) Cardiac/Chest: regular rate, rhythm, other (No murmurs, rubs, gallops. Sternum stable. Sternotomy c/d/i. ) Abdomen: normal bowel sounds, non-tender, soft Skin: normal color, warm/dry Extremities: other (Warm, 1+ lower extemity pitting edema) Neuro/Psych: alert, normal mood/affect, oriented x 3 Discharge Instructions: Call [facility] cardiac rehab to enroll in phase 2 classes if not already arranged. Sternal precautions x 4 weeks. Avoid lifting > 10lbs with an outstretched arm. Avoid push/pull/lifting activities. No driving until cleared by surgery. Elevate low legs at rest. Avoid prolonged standing or dangling. Cleanse wounds once daily with soap and water. Avoid immersion (pool, hot tub, bath) until scabs/glue off. Ok to leave all wounds open to air. Avoid creams or ointments until scabs/glue fall off. Log daily vital signs once home: weight, heart rate, blood pressure, and pulse oximetry if on oxygen. Call [facility] for overnight weight gain > 2lbs, weekly gain > 5lbs or worsening leg swelling. Call [facility] for resting heart rate > 140 OR for systolic blood pressure consistently < 90 or > 140. Target oxygen saturation > 89%. Ok to use [id number] medications for bowel function. Follow up Appointments: 1. Cardiac Surgeon: Michael Inman DO 2. Type Disk Quality Control Supervisor: Mario Alberto Cox MD 3. PCP: Naseem Hanks MD Code Status: Full
== END 2018-05-22 15:43 | disposition home or self-care (01) | DRG 236 ==
LOC: F2N 07:57 → F2W 05-18 17:11
PROVIDERS: ADMIT Thoracic Surgery (Cardiothoracic Vascular Surgery); ATTEND Thoracic Surgery (Cardiothoracic Vascular Surgery)
PROC: 5A1221Z Performance of Cardiac Output, Continuous (ICD-10-PCS; principal; 2018-05-17 10:00)
PROC: 02100Z9 Bypass Coronary Artery, One Artery from Left Internal Mammary, Open Approach (ICD-10-PCS; principal; 2018-05-17 10:00)
PROC: 021209W Bypass Coronary Artery, Three Arteries from Aorta with Autologous Venous Tissue, Open Approach (ICD-10-PCS; principal; 2018-05-17 10:00)
PROC: 06BQ4ZZ Excision of Left Saphenous Vein, Percutaneous Endoscopic Approach (ICD-10-PCS; principal; 2018-05-17 10:00)
PROC: 02L70CK Occlusion of Left Atrial Appendage with Extraluminal Device, Open Approach (ICD-10-PCS; principal; 2018-05-17 10:00)
DX: I25.110 Atherosclerotic heart disease of native coronary artery with unstable angina pectoris (principal); I25.82 Chronic total occlusion of coronary artery; D62 Acute posthemorrhagic anemia; I48.0 Paroxysmal atrial fibrillation; E86.1 Hypovolemia; E10.9 Type 1 diabetes mellitus without complications; I10 Essential (primary) hypertension; E78.5 Hyperlipidemia, unspecified; Z79.4 Long term (current) use of insulin; Z96.41 Presence of insulin pump (external) (internal); Z95.5 Presence of coronary angioplasty implant and graft; Z86.73 Personal history of transient ischemic attack (TIA), and cerebral infarction without residual deficits; I25.2 Old myocardial infarction
CPT/HCPCS: 82435-PO; 82565-PO; 82947-PO; 84132-PO; 84295-PO; 84520-PO; 85014-PO; 97116-GP; 97161-GP; 97165-GO; 97530-GP; 97535-GO; G8978-GP-CJ; G8979-GP-CI; G8987-GO-CJ; G8988-GO-CI; J0153; J0282; J0690; J1100; J1265; J1644; J1815; J1885; J1940; J2001; J2150; J2250; J2260; J2270; J2370; J2405; J2440; J2704; J2720; J2930; J3010; J3475; J3480; J7060; P9041

== ENCOUNTER 2018-05-29 16:11 | Emergency (ER) | payer OTHER ==
--- NOTE | 2018-05-29 16:17 | EDPHY ---
H & P Time Seen by Provider: 05/29/18 16:17 HPI/ROS: CHIEF COMPLAINT: Sharp left-sided lower chest pain HISTORY OF PRESENT ILLNESS: 77-year-old man had cardiac bypass and left atrial appendage clipping on May 17 of this [address] by Dr. Kylie pepe. He was doing well and then 3 days ago developed pain in his left lower chest just lateral to the sternum. He said it is worse when he is walking and then goes away at rest. When he presses on it makes slightly better. He does not have abdominal pain. He is not short of breath. He is not coughing. This pain does not radiate. He is currently on Eliquis and taking it without missing any doses. Currently at rest and is asymptomatic. REVIEW OF SYSTEMS: Eye: no change in vision ENT: no sore throat Cardiac: HPI Pulmonary: no cough or SOB Abdomen: no vomiting, diarrhea, abdominal pain Musculoskeletal: No leg swelling Skin: no rash Neuro: no headache, no weakness or numbness in extremities Constitutional: no fever : no urinary symptoms A comprehensive 10 point review of systems is otherwise negative aside from elements mentioned in the history of present illness. PAST MEDICAL HISTORY: Prostate surgery, hemorrhagic stroke, diabetes. Cardiac bypass as described above. Social history: Here with spouse. General Appearance: Alert and conversant, cooperative. Eyes: No scleral icterus. ENT, Mouth: Normal mucous membranes. Respiratory: Normal respiratory effort, breath sounds equal, lungs are clear to auscultation. No crepitus. He is tender to palpation slightly just lateral to the sternum over the 9th and 10th ribs. Cardiovascular: Regular rate and rhythm. Gastrointestinal: Abdomen is soft and non tender. Specifically not tender over the spleen. No McBurney's point tenderness and no right upper quadrant tenderness. Neurological: Alert, face symmetric, normal motor and sensory in extremities. Skin: Warm and dry, no rashes. Musculoskeletal: No peripheral edema. No calf tenderness. Psychiatric: Not agitated. Emergency Department course/MDM: Clinically unlikely to have pneumonia. Would be very unlikely to have pulmonary embolism with heart rate 67, oxygen saturation 96%, no shortness of breath, on Eliquis without missing any doses. EKG, troponin, chest x-ray. 1722: Labs and chest x-ray reviewed, troponin likely postoperative elevation, I think that symptoms and lab does not likely represent ND or ACS. Discussed with Dr. Gonsalves who agrees with troponin interpretation, agrees with symptomatic treatment and DC home. Results discussed with patient and his at this time. Dr. Gonsalves will contact his surgical team tonight and inform them of the ED visit and workup, and disposition. Smoking Status: Never smoked Constitutional: Initial Vital Signs Temperature (C) 36.7 C 05/29/18 16:12 Heart Rate 67 05/29/18 16:12 Respiratory Rate 18 05/29/18 16:12 Blood Pressure 128/64 H 05/29/18 16:12 O2 Sat (%) 96 05/29/18 16:12 O2 Delivery Mode Room Air Allergies/Adverse Reactions: No Known Allergies Allergy (Verified 05/29/18 16:11) Home Medications: Medication Instructions Recorded Insulin Pump, Patient Own 1 ea [facility] [place] 08/31/10 Aspirin [Aspirin 81mg (*)] 81 mg PO DAILY@21 04/09/17 Albuterol [Proventil Inhaler HFA 1 - 2 puffs IH Q4H PRN 05/12/18 (*)] Cholecalciferol Vit D3 [Vitamin D3 1,000 units PO DAILY 05/12/18 (*)] Ezetimibe [Zetia 10 MG (*)] 10 mg PO DAILY #30 tab 05/14/18 Nitroglycerin [Nitrostat 0.4 mg 0.4 mg SL PRN PRN #30 btl 05/14/18 (*)] Amiodarone HCl [Pacerone (*)] 200 mg PO BID 14 Days #45 tab 05/22/18 Apixaban [Eliquis] 2.5 mg PO BID 30 Days #60 tab 05/22/18 Furosemide [Lasix 40 MG (*)] 40 mg PO DAILY 14 Days #14 tab 05/22/18 Hydrocodone/APAP 5/325 [[place] 1 - 2 tab PO Q6H PRN #50 tab 05/22/18 5/325 (*)] Metoprolol Tartrate [Lopressor 25 37.5 mg PO BID 30 Days tab 05/22/18 mg (*)] Potassium Cl [Klor-Con 20 meq (*)] 20 meq PO DAILY 14 Days #14 tab 05/22/18 Medical Decision Making - Diagnostics EKG Interpretation: 12-lead EKG interpreted by me; official reading is in trace master. My interpretation is sinus rhythm rate 62 with PAC and left anterior fascicular block. Imaging Results: Imaging Impressions Chest X-Ray 05/29/18 16:33 Impression: 1. Cardiac enlargement and mild pulmonary venous redistribution suggest low- grade congestive heart failure/fluid overload. 2. See above report for additional findings. Chest x-ray shows left atrial appendage clip. No pneumothorax or hemothorax or pneumonia Imaging: I viewed and interpreted images myself Differential Diagnosis: Differential diagnosis considered for chest pain including but not limited to myocardial ischemia, aortic dissection, pericarditis, pulmonary embolus, chest wall pain, pleural inflammation and pulmonary infectious causes. - Data Points Laboratory Results: Laboratory Results 05/29/18 16:20 05/29/18 16:20 05/29/18 05/29/18 05/29/18 16:37 16:33 16:20 WBC RBC Hgb POC Hgb 15.0 gm/dL gm/dL (13.7-17.5) Hct POC Hct 44 % % (40-51) MCV MCH MCHC RDW Plt Count MPV Neut % (Auto) Lymph % (Auto) [place] % (Auto) Eos % (Auto) Baso % (Auto) Nucleat RBC Rel Count Absolute Neuts (auto) Absolute Lymphs (auto) Absolute Monos (auto) Absolute Eos (auto) Absolute Basos (auto) Absolute Nucleated RBC Immature Gran % Immature Gran # POC Sodium 138 mEq/L mEq/L (135-145) Sodium 134 mEq/L L mEq/L (135-145) POC Potassium 4.4 mEq/L mEq/L (3.3-5.0) Potassium 4.8 mEq/L mEq/L (3.3-5.0) POC Chloride 101 mEq/L mEq/L (97-110) Chloride 103 mEq/L mEq/L (97-110) Carbon Dioxide 27 mEq/l mEq/l (22-31) Anion Gap 4 mEq/L L mEq/L (8-16) POC BUN 30 mg/dL H mg/dL (7-23) BUN 31 mg/dL H mg/dL (7-23) Creatinine 0.9 mg/dL mg/dL (0.7-1.3) POC Creatinine 1.0 mg/dL mg/dL (0.7-1.3) Estimated GFR > 60 Glucose 131 mg/dL H mg/dL (70-100) POC Glucose 143 mg/dL H mg/dL (70-100) Calcium 8.2 mg/dL L mg/dL (8.5-10.4) POC Troponin I 0.22 ng/mL H ng/mL (0.00-0.08) 05/29/18 16:20 WBC 11.13 10^3/uL H 10^3/uL (3.80-9.50) RBC 4.59 10^6/uL 10^6/uL (4.40-6.38) Hgb 14.2 g/dL g/dL (13.7-17.5) POC Hgb Hct 42.0 % % (40.0-51.0) POC Hct MCV 91.5 fL fL (81.5-99.8) MCH 30.9 pg pg (27.9-34.1) MCHC 33.8 g/dL g/dL (32.4-36.7) RDW 14.3 % % (11.5-15.2) Plt Count 558 10^3/uL H 10^3/uL (150-400) MPV 8.8 fL fL (8.7-11.7) Neut % (Auto) 77.1 % H % (39.3-74.2) Lymph % (Auto) 10.5 % L % (15.0-45.0) [place] % (Auto) 7.3 % % (4.5-13.0) Eos % (Auto) 3.1 % % (0.6-7.6) Baso % (Auto) 1.0 % % (0.3-1.7) Nucleat RBC Rel Count 0.0 % % (0.0-0.2) Absolute Neuts (auto) 8.59 10^3/uL H 10^3/uL (1.70-6.50) Absolute Lymphs (auto) 1.17 10^3/uL 10^3/uL (1.00-3.00) Absolute Monos (auto) 0.81 10^3/uL H 10^3/uL (0.30-0.80) Absolute Eos (auto) 0.34 10^3/uL 10^3/uL (0.03-0.40) Absolute Basos (auto) 0.11 10^3/uL H 10^3/uL (0.02-0.10) Absolute Nucleated RBC 0.00 10^3/uL 10^3/uL (0-0.01) Immature Gran % 1.0 % % (0.0-1.1) Immature Gran # 0.11 10^3/uL H 10^3/uL (0.00-0.10) POC Sodium Sodium POC Potassium Potassium POC Chloride Chloride Carbon Dioxide Anion Gap POC BUN BUN Creatinine POC Creatinine Estimated GFR Glucose POC Glucose Calcium POC Troponin I Point of Care Test Results: Chemistry 05/29/18 05/29/18 16:37 16:33 POC Sodium 138 mEq/L mEq/L (135-145) POC Potassium 4.4 mEq/L mEq/L (3.3-5.0) POC Chloride 101 mEq/L mEq/L (97-110) POC BUN 30 mg/dL H mg/dL (7-23) POC Creatinine 1.0 mg/dL mg/dL (0.7-1.3) POC Glucose 143 mg/dL H mg/dL (70-100) POC Troponin I 0.22 ng/mL H ng/mL (0.00-0.08) ISTAT H&H 05/29/18 16:33 POC Hgb 15.0 gm/dL gm/dL (13.7-17.5) POC Hct 44 % % (40-51) Departure - Departure Disposition: Home, Routine, Self-Care Clinical Impression: Chest pain Qualifiers: Chest pain type: unspecified Qualified Code(s): R07.9 - Chest pain, unspecified Condition: Good Instructions: Chest Pain (ED) Referrals: Nelli Bess MD [Primary Care Provider] - As per Instructions
--- NOTE | 2018-05-29 16:43 | CPEKG ---
Heart Rate: 62 RR Interval: 968 P-R Interval: 172 QRSD Interval: 102 QT Interval: 460 QTC Interval: 468 P [place]: 66 QRS [place]: -60 T Wave [place]: 112 EKG Severity - ABNORMAL ECG - EKG Impression: SINUS RHYTHM EKG Impression: MULTIPLE ATRIAL PREMATURE COMPLEXES EKG Impression: LEFT ANTERIOR FASCICULAR BLOCK EKG Impression: ABNORMAL T, CONSIDER ISCHEMIA, LATERAL LEADS Electronically Signed By: Fidel Retana 29-May-2018 16:44:17
[2018-05-29 16:51] LABS: PLATELET COUNT 558 10^3/uL (150-400)
[2018-05-29 17:37] VITALS: BP 129/71
== END 2018-05-29 17:37 | disposition home or self-care (01) ==
DX: R07.9 Chest pain, unspecified (principal); E11.9 Type 2 diabetes mellitus without complications; Z79.4 Long term (current) use of insulin; Z79.82 Long term (current) use of aspirin
CPT/HCPCS: 82435-PO; 82565-PO; 82947-PO; 84132-PO; 84295-PO; 84484-PO; 84520-PO; 85014-PO

== ENCOUNTER 2018-05-30 13:58 | Emergency (ER) | payer OTHER ==
--- NOTE | 2018-05-30 14:11 | EDPHY ---
H & P Time Seen by Provider: 05/30/18 14:11 HPI/ROS: CHIEF COMPLAINT: Sharp left-sided lower chest pain HISTORY OF PRESENT ILLNESS: 77-year-old man had cardiac bypass and left atrial appendage clipping on May 17 of this year by Dr. Inman. He was doing well and then 3 days ago developed pain in his left lower chest just lateral to the sternum. He said it is worse when he is walking and then goes away at rest. When he presses on it makes slightly better. He does not have abdominal pain. He is not short of breath. He is not coughing. This pain does not radiate. He is currently on Eliquis and taking it without missing any doses. He was seen yesterday in the emergency department with a negative chest x-ray and troponin of 0.2, was discharged for consultation with Cardiology. Today he went for a walk out from the house but got severe left upper abdomen and left lower chest pain which resolved about a minute after he returned to the house and stopped walking. REVIEW OF SYSTEMS: Eye: no change in vision ENT: no sore throat Cardiac: HPI Pulmonary: no cough or SOB Abdomen: No vomiting or diarrhea Musculoskeletal: No leg swelling Skin: no rash, incisions healing well Neuro: no headache, no weakness or numbness in extremities Constitutional: no fever : no urinary symptoms A comprehensive 10 point review of systems is otherwise negative aside from elements mentioned in the history of present illness. PAST MEDICAL HISTORY: Prostate surgery, hemorrhagic stroke, diabetes. Cardiac bypass as described above. Social history: Here with spouse. General Appearance: Alert and conversant, cooperative. Eyes: No scleral icterus. ENT, Mouth: Normal mucous membranes. Respiratory: Normal respiratory effort, breath sounds equal, lungs are clear to auscultation. No crepitus. Cardiovascular: Regular rate and rhythm. Gastrointestinal: Abdomen is soft and non tender. Specifically not tender over the spleen. No McBurney's point tenderness and no right upper quadrant tenderness. Neurological: Alert, face symmetric, normal motor and sensory in extremities. Ambulatory. Skin: Warm and dry, no rashes. Musculoskeletal: No peripheral edema. No calf tenderness. Psychiatric: Not agitated. Emergency Department course/MDM: Plan for CT chest abdomen and pelvis, with continued symptoms and negative plain film imaging yesterday. Yesterday's creatinine was 1.0. 1447: Labs reviewed including troponin stable from yesterday. 1620: Negative CT chest abdomen pelvis per Dr. Yarbrough. Right lung nodule knees 1 year follow-up, patient warned. Abdomen constipation stool. Chest negative otherwise. Results discussed with the patient and son, stable for discharge, symptomatic management. More likely to be musculoskeletal or soft tissue, does not appear to be emergent medical or surgical condition. Patient asymptomatic at rest. 1646: Discussed with Dr. Davis Inman. Smoking Status: Never smoked Constitutional: Initial Vital Signs Temperature (C) 37 C 05/30/18 14:00 Heart Rate 63 05/30/18 14:00 Respiratory Rate 20 05/30/18 14:00 Blood Pressure 129/86 H 05/30/18 14:00 O2 Sat (%) 95 05/30/18 14:00 O2 Delivery Mode Room Air O2 (L/minute) 36.4 Allergies/Adverse Reactions: No Known Allergies Allergy (Verified 05/30/18 14:04) Home Medications: Medication Instructions Recorded Insulin Pump, Patient Own 1 ea [facility] [place] 08/31/10 Aspirin [Aspirin 81mg (*)] 81 mg PO DAILY@21 04/09/17 Albuterol [Proventil Inhaler HFA 1 - 2 puffs IH Q4H PRN 05/12/18 (*)] Cholecalciferol Vit D3 [Vitamin D3 1,000 units PO DAILY 05/12/18 (*)] Ezetimibe [Zetia 10 MG (*)] 10 mg PO DAILY #30 tab 05/14/18 Nitroglycerin [Nitrostat 0.4 mg 0.4 mg SL PRN PRN #30 btl 05/14/18 (*)] Amiodarone HCl [Pacerone (*)] 200 mg PO BID 14 Days #45 tab 05/22/18 Apixaban [Eliquis] 2.5 mg PO BID 30 Days #60 tab 05/22/18 Furosemide [Lasix 40 MG (*)] 40 mg PO DAILY 14 Days #14 tab 05/22/18 Hydrocodone/APAP 5/325 [[place] 1 - 2 tab PO Q6H PRN #50 tab 05/22/18 5/325 (*)] Metoprolol Tartrate [Lopressor 25 37.5 mg PO BID 30 Days tab 05/22/18 mg (*)] Potassium Cl [Klor-Con 20 meq (*)] 20 meq PO DAILY 14 Days #14 tab 05/22/18 Medical Decision Making - Diagnostics EKG Interpretation: 12-lead EKG interpreted by me; official reading is in trace master. My interpretation is sinus rhythm rate 60, anterior T-wave inversions noted. Imaging Results: Imaging Impressions Abdomen CT 05/30/18 14:16 Impression: 1. Moderate constipation. 2. No CT evidence of appendicitis, abscess or bowel obstruction. 3. Stable anterior wedge compression fractures of T12 and L2. Previous DEXA scan revealed osteopenia.. Findings discussed with Fidel Retana M.D. at 16:17 hour, 05/30/2018. Chest/Thorax CTA 05/30/18 14:16 Impression: 1. Normal-appearing thoracic aorta and pulmonary arterial system. 2. Postoperative changes related to recent open heart surgery. 3. Incidental subsegmental atelectasis bilaterally as detailed above. There is also small left effusion. 4. Probable chronic compressions of T6 and T12. T12 compression was documented on previous remote imaging. Findings discussed with Fidel Retana M.D. at 16:17 hour, 05/30/2018. Imaging: Discussed imaging studies w/ score caller Radiologist Differential Diagnosis: Differential diagnosis considered for chest pain including but not limited to myocardial ischemia, aortic dissection, pericarditis, pulmonary embolus, chest wall pain, pleural inflammation, abdominal bleeding, splenic infarct, bowel obstruction, and pulmonary infectious causes. - Data Points Laboratory Results: Laboratory Results 05/30/18 14:18 05/30/18 14:18 05/30/18 05/30/18 05/30/18 14:41 14:24 14:18 WBC RBC Hgb Hct MCV MCH MCHC RDW Plt Count MPV Neut % (Auto) Lymph % (Auto) [place] % (Auto) Eos % (Auto) Baso % (Auto) Nucleat RBC Rel Count Absolute Neuts (auto) Absolute Lymphs (auto) Absolute Monos (auto) Absolute Eos (auto) Absolute Basos (auto) Absolute Nucleated RBC Immature Gran % Immature Gran # Sodium 136 mEq/L mEq/L (135-145) Potassium 4.3 mEq/L mEq/L (3.3-5.0) Chloride 103 mEq/L mEq/L (97-110) Carbon Dioxide 30 mEq/l mEq/l (22-31) Anion Gap 3 mEq/L L mEq/L (8-16) BUN 27 mg/dL H mg/dL (7-23) Creatinine 0.9 mg/dL mg/dL (0.7-1.3) Estimated GFR > 60 Glucose 129 mg/dL H mg/dL (70-100) Calcium 8.0 mg/dL L mg/dL (8.5-10.4) Total Bilirubin 0.8 mg/dL mg/dL (0.1-1.4) Conjugated Bilirubin 0.4 mg/dL mg/dL (0.0-0.5) Unconjugated Bilirubin 0.4 mg/dL mg/dL (0.0-1.1) AST 22 IU/L IU/L (17-59) ALT 24 IU/L IU/L (21-72) Alkaline Phosphatase 138 IU/L H IU/L (38-126) POC Troponin I 0.22 ng/mL H ng/mL (0.00-0.08) Total Protein 6.5 g/dL g/dL (6.3-8.2) Albumin 3.1 g/dL L g/dL (3.5-5.0) Lipase 16 IU/L L IU/L (23-300) 05/30/18 14:18 WBC 9.81 10^3/uL H 10^3/uL (3.80-9.50) RBC 4.69 10^6/uL 10^6/uL (4.40-6.38) Hgb 14.5 g/dL g/dL (13.7-17.5) Hct 43.3 % % (40.0-51.0) MCV 92.3 fL fL (81.5-99.8) MCH 30.9 pg pg (27.9-34.1) MCHC 33.5 g/dL g/dL (32.4-36.7) RDW 14.3 % % (11.5-15.2) Plt Count 592 10^3/uL H 10^3/uL (150-400) MPV 8.7 fL fL (8.7-11.7) Neut % (Auto) 77.9 % H % (39.3-74.2) Lymph % (Auto) 10.3 % L % (15.0-45.0) [place] % (Auto) 7.7 % % (4.5-13.0) Eos % (Auto) 2.5 % % (0.6-7.6) Baso % (Auto) 0.9 % % (0.3-1.7) Nucleat RBC Rel Count 0.0 % % (0.0-0.2) Absolute Neuts (auto) 7.63 10^3/uL H 10^3/uL (1.70-6.50) Absolute Lymphs (auto) 1.01 10^3/uL 10^3/uL (1.00-3.00) Absolute Monos (auto) 0.76 10^3/uL 10^3/uL (0.30-0.80) Absolute Eos (auto) 0.25 10^3/uL 10^3/uL (0.03-0.40) Absolute Basos (auto) 0.09 10^3/uL 10^3/uL (0.02-0.10) Absolute Nucleated RBC 0.00 10^3/uL 10^3/uL (0-0.01) Immature Gran % 0.7 % % (0.0-1.1) Immature Gran # 0.07 10^3/uL 10^3/uL (0.00-0.10) Sodium Potassium Chloride Carbon Dioxide Anion Gap BUN Creatinine Estimated GFR Glucose Calcium Total Bilirubin Conjugated Bilirubin Unconjugated Bilirubin AST ALT Alkaline Phosphatase POC Troponin I Total Protein Albumin Lipase Point of Care Test Results: Chemistry 05/30/18 14:24 POC Troponin I 0.22 ng/mL H ng/mL (0.00-0.08) Departure - Departure Disposition: Home, Routine, Self-Care Clinical Impression: Abdominal pain Qualifiers: Abdominal location: left upper quadrant Qualified Code(s): R10.12 - Left upper quadrant pain Chest pain Qualifiers: Chest pain type: unspecified Qualified Code(s): R07.9 - Chest pain, unspecified Condition: Good Instructions: Chest Pain (ED), Acute Abdominal Pain (ED) Additional Instructions: You have a nodule in your right lung incidentally seen on chest CT that needs follow-up CT scan in 1 year. Referrals: Michael Inman DO [Doctor of Osteopathy] - As per Instructions
--- NOTE | 2018-05-30 14:30 | CPEKG ---
Heart Rate: 60 RR Interval: 1000 P-R Interval: 172 QRSD Interval: 104 QT Interval: 468 QTC Interval: 468 P [place]: 53 QRS [place]: -58 T Wave [place]: 121 EKG Severity - ABNORMAL ECG - EKG Impression: SINUS RHYTHM EKG Impression: LEFT ANTERIOR FASCICULAR BLOCK EKG Impression: ABNORMAL T, CONSIDER ISCHEMIA, LATERAL LEADS Electronically Signed By: Fidel Retana 30-May-2018 14:38:32
[2018-05-30 14:36] LABS: PLATELET COUNT 592 10^3/uL (150-400)
[2018-05-30] MEDS ORDERED: IOPAMIDOL (ISOVUE 370) 100 ML BTL IV ONE (14:50)
[2018-05-30 16:25] VITALS: BP 127/60
== END 2018-05-30 16:43 | disposition home or self-care (01) ==
DX: R07.9 Chest pain, unspecified (principal); R10.12 Left upper quadrant pain; E11.9 Type 2 diabetes mellitus without complications; Z79.4 Long term (current) use of insulin; Z79.82 Long term (current) use of aspirin
CPT/HCPCS: 71275; 74177; 93005; 99285; Q9967; 84484-PO